=== PATIENT | male | born 1960 | race Caucasian/White ===

== ENCOUNTER → 2016-10-23 | Outpatient (CLI) | payer BC, OTHER ==
[~2016-10-23] MED LIST: ALLO300T2 PO; ASPEC81 PO; CLC6 PO; DICL1.3D21 TD; GLC/500 PO; GLIP-197 PO; LEVO200T6 PO; LPT40 PO; METF-384 PO; METO25TA3 PO; NAPR1TAB9 PO
[2016-10-23 19:34] LABS: AST/SGOT 56 U/L (15-37); BLOOD UREA NITROGEN 17 mg/dl (7-18); BUN/CREATININE RATIO 12.7 (10-20); CALCIUM 9.2 mg/dl (8.5-10.1); CARBON DIOXIDE 23 mmol/L (21-32); CHLORIDE 105 mmol/L (98-107); GLUCOSE 85 mg/dl (70-99); SODIUM 138 mmol/L (136-145)
[2016-10-23 19:45] LABS: ALT/SGPT 75 U/L (12-78); CHOLESTEROL 86 mg/dl (0-200); CHOLESTEROL/HDL RATIO 2.2; HDL CHOLESTEROL 40 mg/dl; LDL CHOLESTEROL CALCULATED 31 mg/dl; TRIGLYCERIDES 77 mg/dl (0-150); URIC ACID 5.7 mg/dl (2.6-7.2); VERY LOW DENSITY LIPOPROT CALC 15 mg/dl
[2016-10-24 06:20] LABS: ESTIMATED AVERAGE GLUCOSE 148 mg/dl; HA1C FLAG Normal (Normal)
== END | disposition home or self-care (01) ==
LOC: C.LAB1850 16:13
PROVIDERS: ATTEND Internal Medicine
DX: E03.9 Hypothyroidism, unspecified (principal); E11.9 Type 2 diabetes mellitus without complications; E78.5 Hyperlipidemia, unspecified; M10.9 Gout, unspecified

== ENCOUNTER → 2016-11-29 | Outpatient (CLI) | payer BC, OTHER ==
--- NOTE | 2016-11-29 10:13 | DIAGNOSTIC IMAGING REPORT ---
LEFT KNEE 2 VIEWS CLINICAL HISTORY: Left knee pain. FINDINGS: AP and lateral views of the left knee are compared to study dated 02/19/2016. The skeletal structures appear osteopenic. No fracture is seen. There is mild to moderate degenerative narrowing at the patellofemoral articulation. The medial and lateral compartments appear maintained. There is mild degenerative beaking of the tibial spine. Tiny patellar enthesophytes are noted. There is no large joint effusion. Prepatellar soft tissue swelling is noted. IMPRESSION: 1. Mild prepatellar soft tissue swelling. No acute bony abnormality is seen in the left knee. 2. Osteopenia and mild arthritic change as above. Electronically signed by: Javad Vega M.D. 11/29/2016 10:11 AM Dictated Date/Time: 11/29/2016 10:10 AM
== END | disposition home or self-care (01) ==
LOC: C.RADBC 09:28
PROVIDERS: ATTEND Internal Medicine
DX: M25.562 Pain in left knee (principal); M85.80 Other specified disorders of bone density and structure, unspecified site

== ENCOUNTER → 2017-04-18 | Outpatient (CLI) | payer BC, OTHER ==
[2017-04-18 18:35] LABS: ALT/SGPT 88 U/L (12-78); AST/SGOT 47 U/L (15-37); BLOOD UREA NITROGEN 21 mg/dl (7-18); BUN/CREATININE RATIO 17.2 (10-20); CALCIUM 9.1 mg/dl (8.5-10.1); CARBON DIOXIDE 26 mmol/L (21-32); CHLORIDE 104 mmol/L (98-107); CHOLESTEROL 151 mg/dl (0-200); GLUCOSE 93 mg/dl (70-99); SODIUM 137 mmol/L (136-145); URIC ACID 6.1 mg/dl (2.6-7.2)
[2017-04-18 18:45] LABS: CHOLESTEROL/HDL RATIO 4.2; HDL CHOLESTEROL 36 mg/dl; LDL CHOLESTEROL CALCULATED 85 mg/dl; PROSTATE SPECIFIC ANTIGEN 0.289 ng/ml (0.000-4.000); TRIGLYCERIDES 149 mg/dl (0-150); VERY LOW DENSITY LIPOPROT CALC 30 mg/dl
[2017-04-19 07:06] LABS: ESTIMATED AVERAGE GLUCOSE 180 mg/dl; HA1C FLAG Normal (Normal)
== END | disposition home or self-care (01) ==
LOC: C.LAB1850 16:17
PROVIDERS: ATTEND Internal Medicine
DX: Z12.5 Encounter for screening for malignant neoplasm of prostate (principal); M10.9 Gout, unspecified; E78.5 Hyperlipidemia, unspecified; E03.9 Hypothyroidism, unspecified; E11.9 Type 2 diabetes mellitus without complications

== ENCOUNTER → 2017-07-30 | Outpatient (CLI) | payer BC, OTHER ==
[2017-07-30 09:44] LABS: ALT/SGPT 64 U/L (12-78); BLOOD UREA NITROGEN 17 mg/dl (7-18); BUN/CREATININE RATIO 14.8 (10-20); CARBON DIOXIDE 23 mmol/L (21-32); CHLORIDE 104 mmol/L (98-107); CREATININE 1.15 mg/dl (0.60-1.40); GLUCOSE 163 mg/dl (70-99); POTASSIUM 4.5 mmol/L (3.5-5.1); SODIUM 135 mmol/L (136-145)
[2017-07-30 09:55] LABS: ALKALINE PHOSPHATASE 82 U/L (45-117); AST/SGOT 53 U/L (15-37); THYROID STIMULATING HORMONE 0.009 uIu/ml (0.300-4.500)
[2017-07-30 09:56] LABS: ESTIMATED AVERAGE GLUCOSE 186 mg/dl; HA1C FLAG Normal (Normal)
== END | disposition home or self-care (01) ==
LOC: C.LAB1850 07:12
PROVIDERS: ATTEND Internal Medicine
DX: K76.0 Fatty (change of) liver, not elsewhere classified (principal); E11.9 Type 2 diabetes mellitus without complications; E03.9 Hypothyroidism, unspecified

== ENCOUNTER → 2017-07-31 | Outpatient (CLI) | payer BC, OTHER ==
--- NOTE | 2017-07-31 15:27 | DIAGNOSTIC IMAGING REPORT ---
CERVICAL SPINE 5 VIEWS CLINICAL HISTORY: Neck numbness. No reported history of trauma. FINDINGS: AP, lateral, bilateral oblique, and odontoid views of the cervical spine are correlated with CT angiogram of the neck dated 08/16/2016. The skeletal structures are well mineralized. There is no radiographic evidence of fracture or subluxation. The odontoid process and lateral masses appear intact on the open-mouth view. Mild productive degenerative change is seen at the atlantodental articulation. Vertebral body height and alignment are preserved throughout the cervical spine. There is straightening of the cervical lordosis. The spinolaminar line is preserved. The spinous processes appear intact. There is only mild bilateral neuroforaminal stenosis seen in the lower cervical region on the oblique views. Mild facet arthropathy is observed. Anterior osteophytes are noted in the lower cervical region. There is mild disc space narrowing seen at C6-C7. The remaining disc spaces appear maintained. The prevertebral soft tissues are within normal limits. The partially imaged apical lung parenchyma appears clear. IMPRESSION: 1. No acute bony abnormality is seen involving the cervical spine. 2. Mild spondylotic change as above. Dictated: 07/31/2017 3:18 PM Transcribed: 07/31/2017 3:26 PM [email or web address] Electronically signed by: Javad Vega M.D. 07/31/2017 3:32 PM Dictated Date/Time: 07/31/2017 3:18 PM
== END | disposition home or self-care (01) ==
LOC: C.RAD1850 14:53
PROVIDERS: ATTEND Psychiatry & Neurology Neurology
DX: R20.0 Anesthesia of skin (principal)

== ENCOUNTER → 2017-10-15 | Outpatient (CLI) | payer BC, OTHER ==
[2017-10-15 16:03] LABS: ALT/SGPT 117 U/L (12-78); AST/SGOT 72 U/L (15-37); BLOOD UREA NITROGEN 12 mg/dl (7-18); CARBON DIOXIDE 26 mmol/L (21-32); CREATININE 1.32 mg/dl (0.60-1.40); GLUCOSE 125 mg/dl (70-99); POTASSIUM 4.2 mmol/L (3.5-5.1); SODIUM 134 mmol/L (136-145)
[2017-10-15 16:12] LABS: CHOLESTEROL 148 mg/dl (0-200); LDL CHOLESTEROL CALCULATED 76 mg/dl
[2017-10-16 06:32] LABS: HEMOGLOBIN A1C 8.5 % (4.5-5.6)
== END | disposition home or self-care (01) ==
LOC: C.LAB1850 14:36
PROVIDERS: ATTEND Internal Medicine
DX: E11.9 Type 2 diabetes mellitus without complications (principal); E03.9 Hypothyroidism, unspecified; E78.5 Hyperlipidemia, unspecified

== ENCOUNTER → 2017-12-03 | Outpatient (CLI) | payer BC, OTHER ==
[~2017-12-03] MED LIST changes: -ASPEC81 PO; +ASPI-320 PO
[2017-12-03 16:49] LABS: ALBUMIN 3.6 gm/dl (3.4-5.0); TOTAL PROTEIN 7.5 gm/dl (6.4-8.2)
== END | disposition home or self-care (01) ==
LOC: C.LAB1850 14:32
PROVIDERS: ATTEND Internal Medicine
DX: E03.9 Hypothyroidism, unspecified (principal); R74.8 Abnormal levels of other serum enzymes

== ENCOUNTER → 2017-12-11 | Outpatient (CLI) | payer BC, OTHER ==
--- NOTE | 2017-12-11 17:12 | DIAGNOSTIC IMAGING REPORT ---
LEFT KNEE 3 VIEWS HISTORY: Left knee pain. COMPARISON: Left knee 11/29/2016. FINDINGS: There is no fracture or dislocation. Small knee effusion. Tiny marginal osteophytes at the patella unchanged. Otherwise, the cartilage spaces are maintained. No radiopaque foreign bodies. IMPRESSION: Small knee effusion. No fractures. Electronically signed by: Ervin Mora M.D. 12/11/2017 5:11 PM Dictated Date/Time: 12/11/2017 5:09 PM
== END | disposition home or self-care (01) ==
LOC: C.RAD1850 15:59
PROVIDERS: ATTEND Physician Assistant
DX: M25.562 Pain in left knee (principal)

== ENCOUNTER 2025-07-15 06:44 | Inpatient (IN) ==
--- NOTE | 2025-07-15 06:50 | Emergency Department Note ---
History of Present Illness General Chief complaint: GI Assessment Stated complaint: Abdominal Pain, Coffee Ground Emesis, Diarrhea Time Seen by Provider: 07/15/25 06:46 History of Present Illness This is a 64-year-old male with a history of type 2 diabetes, hypertension, hypertrophic cardiomyopathy that presents to the emergency department via EMS with complaints of "abdominal pain, coffee-ground emesis, diarrhea". The patient states that for the past 2 days he has had epigastric abdominal discomfort that does not radiate. There is no back pain. No tearing sensation. No chest pain or shortness of breath. No fevers or chills. Patient has had dry heaving for the past 2 days. This morning upon dry heaving there was productive emesis that he notes was coffee-ground in appearance. He has a picture that does depict coffee-ground emesis within the toilet basin surrounded by a pink hue to the water. The patient denies any history of anticoagulant use. He does take aspirin daily but did not have it this morning. Report from medic notes that the patient received 4 mg IV Zofran and 550 mL of NSS in route. Home Medications Medication Instructions Recorded Confirmed Type aspirin 81 mg tablet,delayed 81 mg PO QAM 05/31/19 07/15/25 History release blood-glucose sensor (Dexcom G7 #1 ea 11/06/23 06/06/25 Rx Sensor device) blood-glucose,filenet p8 developer,cont #1 ea 11/06/23 06/06/25 Rx (Dexcom G7 Appraisal Technician) pantoprazole 40 mg tablet,delayed 40 mg PO DAILY #30 tabs 11/28/23 07/15/25 Rx release glipizide 5 mg tablet 5 mg PO DAILY #90 tabs 09/29/24 07/15/25 Rx metoprolol succinate 25 mg 25 mg PO QAM #90 tabs 09/29/24 07/15/25 Rx tablet,extended release 24 hr levothyroxine 150 mcg tablet 150 mcg PO UD #90 tabs 03/02/25 07/15/25 Rx flash glucose sensor (FreeStyle #2 ea 03/07/25 06/06/25 Rx Russell 2 Sensor kit) blood-glucose sensor (FreeStyle #1 ea 03/23/25 06/06/25 Rx Russell 3 Plus Sensor device) atorvastatin 80 mg tablet 80 mg PO HS #90 tabs 04/22/25 07/15/25 Rx metformin 1,000 mg tablet 1,000 mg PO BID #180 tabs 06/09/25 07/15/25 Rx tirzepatide 12.5 mg/0.5 mL 12.5 mg (0.5 mL) subcut Q7D #6 mL 06/09/25 07/15/25 Rx subcutaneous pen injector allopurinol 300 mg tablet 300 mg PO QAM #90 tabs 07/11/25 07/15/25 Rx meloxicam 7.5 mg tablet 7.5 mg PO DAILY PRN PAIN 07/15/25 07/15/25 History Allergies Allergy/AdvReac Type Severity Reaction Status Date / Time No Known Allergies Allergy Verified 06/06/25 14:53 Past Med/Surg History Problem List (Updated 07/15/25 @ 13:52 by Renato Cortes MD) Portal hypertensive gastropathy Esophageal varices UGI bleed Hyperkalemia (Acute) Liver cirrhosis (Acute) Lactic acidosis (Acute) Metabolic acidosis with normal anion gap and bicarbonate losses Coffee ground emesis (Acute) Type 2 diabetes mellitus with obesity Degenerative tear of left medial meniscus Pancytopenia Current use of proton pump inhibitor Encounter for pre-operative examination Epigastric pain (Acute) Diarrhea Anemia, mild Rupture of right proximal biceps tendon Gout (Chronic) Hypertension (Chronic) Left ventricular hypertrophy (Chronic) Obstructive hypertrophic cardiomyopathy (Chronic) f/u mn cardio Obstructive sleep apnea (Chronic) hx-had sx to repair Type 2 diabetes mellitus (Chronic) Hypothyroidism (Chronic) Medical History Hyperlipidemia CVA (cerebrovascular accident) 06/2015 and 08/2015>both "mild">no residual effects from either time, currently on aspirin Surgical History Hx of colonoscopy H/O uvulectomy S/P tonsillectomy and adenoidectomy Family History Uncle Coronary heart disease Grandfather (Maternal) Coronary heart disease Mother Diabetes Stroke Uncle Diabetes Grandmother (Maternal) Congestive heart failure Other Myocardial infarction Denies family history of Prostate cancer Breast cancer Colorectal cancer Social History Smoking Status: Never smoker Second Hand Exposure: Yes (hx growing up); Do You Dip or Chew Tobacco: No; Hx Alcohol Use: Yes Alcohol Intake Frequency: Monthly or Less Hx Substance Use: Yes Last Used Substance Other:: remote hx-occasional Preferred Language: Welsh Communication Ability: Effective Visual Impairment: No Limitations Hearing Ability: Normal Baler Operator Required: No Beliefs That Will Affect Care: None marital status: Current Living Situation: Spouse current occupational status: 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 [employer] 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+ years in the [employer] Feels Safe at Home: Yes Childhood Exposure to Second-Hand Smoke: Yes Dental Care, Regularly: Yes Physical Activity Frequency: 1-2 Times per Week Seatbelt Use: always Sunscreen Use: Yes Assistive Devices: Glasses Review of Systems A total of 10 systems reviewed and were otherwise negative Physical Exam Vital Signs Vital Signs - 24 hr 07/15/25 06:52 07/15/25 06:58 07/15/25 08:36 Temperature 36.6 C Temperature Source Oral Pulse Rate 108 H 108 H 103 H Pulse Rhythm Regular Respiratory Rate 17 17 Respiratory Effort / Characteristics Non-Labored Spontaneous Respiratory Depth Normal Respiratory Pattern Regular Blood Pressure 114/59 L Blood Pressure Mean 77 Pulse Oximetry 99 99 Oxygen Delivery Method Room Air Room Air Sepsis Recent Fever Within 48 Hours No Sepsis New/Unexplained Change in Mental Status No Sepsis Action Taken by Nursing No Action Required 07/15/25 09:24 07/15/25 09:31 07/15/25 09:31 Temperature 36.9 C Temperature Source Oral Pulse Rate 102 H Pulse Rhythm Respiratory Rate 30 H Respiratory Effort / Characteristics Respiratory Depth Respiratory Pattern Blood Pressure 113/72 120/65 120/65 Blood Pressure Mean 85 95 95 Pulse Oximetry 96 Oxygen Delivery Method Sepsis Recent Fever Within 48 Hours Sepsis New/Unexplained Change in Mental Status Sepsis Action Taken by Nursing 07/15/25 09:31 07/15/25 09:36 07/15/25 09:37 Temperature Temperature Source Pulse Rate 103 H Pulse Rhythm Respiratory Rate 24 Respiratory Effort / Characteristics Respiratory Depth Respiratory Pattern Blood Pressure 120/65 87/64 L Blood Pressure Mean 95 66 Pulse Oximetry Oxygen Delivery Method Sepsis Recent Fever Within 48 Hours Sepsis New/Unexplained Change in Mental Status Sepsis Action Taken by Nursing 07/15/25 09:39 07/15/25 09:39 07/15/25 09:39 Temperature 37.1 C Temperature Source Oral Pulse Rate 102 H 101 H Pulse Rhythm Respiratory Rate 20 26 H Respiratory Effort / Characteristics Respiratory Depth Respiratory Pattern Blood Pressure 114/66 114/70 Blood Pressure Mean 82 80 Pulse Oximetry Oxygen Delivery Method Sepsis Recent Fever Within 48 Hours Sepsis New/Unexplained Change in Mental Status Sepsis Action Taken by Nursing 07/15/25 09:40 07/15/25 09:40 07/15/25 09:40 Temperature Temperature Source Pulse Rate Pulse Rhythm Respiratory Rate Respiratory Effort / Characteristics Respiratory Depth Respiratory Pattern Blood Pressure 114/66 114/66 114/66 Blood Pressure Mean 90 90 90 Pulse Oximetry Oxygen Delivery Method Sepsis Recent Fever Within 48 Hours Sepsis New/Unexplained Change in Mental Status Sepsis Action Taken by Nursing 07/15/25 09:40 07/15/25 09:40 Temperature Temperature Source Pulse Rate Pulse Rhythm Respiratory Rate Respiratory Effort / Characteristics Respiratory Depth Respiratory Pattern Blood Pressure 114/66 114/66 Blood Pressure Mean 90 90 Pulse Oximetry Oxygen Delivery Method Sepsis Recent Fever Within 48 Hours Sepsis New/Unexplained Change in Mental Status Sepsis Action Taken by Nursing VITAL SIGNS - Vital signs and nursing notes were reviewed. Stable and afebrile. GENERAL - 64-year-old male appearing his stated age who is in no acute distress. Communicates well with provider and answers questions appropriately. SKIN - Without rashes. HEAD - NC/AT. EYES - PERRL with EOMI bilaterally. Sclera anicteric. EARS - No deformities of external structures noted on gross examination bilaterally. NOSE - Midline and without cyanosis. No epistaxis or purulent drainage noted. MOUTH/OROPHARYNX - Without perioral cyanosis. NECK - Neck with FROM. No nuchal rigidity. LUNGS - CTA CARDIAC - RRR ABDOMEN - Abdominal contour normal without pulsations or visible masses. BS normoactive all four quadrants. Epigastric abdominal tenderness to palpation. No palpable masses, hepatosplenomegaly, or ascites noted. EXTREMITIES - No clubbing or peripheral cyanosis. +5/5 strength noted in UE/LE bilaterally. NEUROLOGIC - Cranial nerves II through XII grossly intact. PSYCH -alert, oriented and pleasant on exam Course Administered Medications Octreotide Acetate 500 mcg/ (Sodium Chloride) 100.5 mls @ 10.05 mls/hr IV .Q10H PRETTY Stop: 08/14/25 09:14 Last Admin: 07/15/25 17:32 Dose: 50 mcg/hr, 10.1 mls/hr Documented By: marley Infusion: 07/15/25 17:32 Dose: Infused Documented By: marley Admin: 07/15/25 10:00 Dose: 50 mcg/hr, 10.1 mls/hr Documented By: EFRAIN Pantoprazole Sodium (Protonix) 40 mg in 10 mls @ 5 mls/min IV BID PRETTY Stop: 08/14/25 20:59 Last Admin: 07/15/25 21:05 Dose: 5 mls/min Documented By: [id number] Insulin Aspart (Insulin Aspart Per Unit Charge) 0 units SC ACHS PRETTY Stop: 08/14/25 20:59 Last Admin: 07/15/25 21:10 Dose: Not Given Documented By: [id number] Co-signed By: PATRICIO Insulin Glargine (Lantus Per Unit Charge) 10 units SQ HS PRETTY Stop: 08/14/25 20:59 Last Admin: 07/15/25 21:25 Dose: 10 units Documented By: [id number] Co-signed By: PATRICIO Discontinued Medications Dextrose (Dextrose 50% 50 Ml Syringe) 50 ml IV NOW STA Stop: 07/15/25 09:23 Last Admin: 07/15/25 09:53 Dose: 50 ml Documented By: REAL Dextrose (Dextrose 50% 50 Ml Syringe) 50 ml IV NOW STA Stop: 07/15/25 11:36 Last Admin: 07/15/25 12:10 Dose: 50 ml Documented By: marley Pantoprazole Sodium 40 mg/ (Dextrose) 100 mls @ 20 mls/hr IV Q5H PRETTY Stop: 08/14/25 07:14 Last Infusion: 07/15/25 19:35 Dose: Infused Documented By: [id number] Admin: 07/15/25 17:32 Dose: 8 mg/hr, 20 mls/hr Documented By: marley Infusion: 07/15/25 17:32 Dose: Infused Documented By: marley Admin: 07/15/25 13:08 Dose: 8 mg/hr, 20 mls/hr Documented By: Infusion: 07/15/25 13:08 Dose: Infused Documented By: Admin: 07/15/25 08:28 Dose: 8 mg/hr, 20 mls/hr Documented By: REAL Pantoprazole Sodium 80 mg/ (Dextrose) 120 mls @ 480 mls/hr IV NOW ONE Stop: 07/15/25 07:11 Last Infusion: 07/15/25 08:32 Dose: Infused Documented By: Admin: 07/15/25 07:20 Dose: 480 mls/hr Documented By: KARY Sodium Chloride (Nss) 1,000 mls @ 999 mls/hr IV .Q1H1M ONE Stop: 07/15/25 08:53 Last Infusion: 07/15/25 09:38 Dose: Infused Documented By: Admin: 07/15/25 08:32 Dose: 999 mls/hr Documented By: REAL Ceftriaxone Sodium (Rocephin) 2,000 mg in 50 mls @ 100 mls/hr IV NOW STA Stop: 07/15/25 09:22 Last Infusion: 07/15/25 12:35 Dose: Infused Documented By: dst Admin: 07/15/25 10:42 Dose: 100 mls/hr Documented By: marley Sodium Bicarbonate 150 meq/ (Dextrose) 1,150 mls @ 290 mls/hr IV .Q3H58M STA Stop: 07/15/25 13:19 Last Infusion: 07/15/25 15:30 Dose: Infused Documented By: dst Admin: 07/15/25 11:31 Dose: 290 mls/hr Documented By: marley Insulin Human Regular 10 units (/ Syringe) 9.9 mls @ 3 mls/sec IV ONE STA Stop: 07/15/25 09:23 Last Admin: 07/15/25 09:52 Dose: 3 mls/sec Documented By: REAL Co-signed By: KARY Insulin Human Regular 10 units (/ Syringe) 9.9 mls @ 3 mls/sec IV ONE STA Stop: 07/15/25 11:36 Last Admin: 07/15/25 12:10 Dose: 3 mls/sec Documented By: dst Co-signed By: EFRAIN Insulin Aspart (Insulin Aspart Per Unit Charge) 0 units SC ACHS PRETTY Stop: 08/14/25 11:29 Last Admin: 07/15/25 16:13 Dose: 3 units Documented By: dst Co-signed By: EFRAIN Admin: 07/15/25 12:39 Dose: Not Given Documented By: EFRAIN Ioversol (Optiray 320 100ml) 94 ml IV ONCE ONE Stop: 07/15/25 08:12 Last Admin: 07/15/25 08:14 Dose: 94 ml Documented By: NICK Metoclopramide HCl (Metoclopramide Hcl Inj 5 Mg/Ml 2 Ml Vial) 10 mg IV NOW STA Stop: 07/15/25 09:32 Last Admin: 07/15/25 09:45 Dose: 10 mg Documented By: REAL Gates (Stat Iv/Im) 1 each N/A NOW STA Stop: 07/15/25 09:15 Last Admin: 07/15/25 09:38 Dose: 1 each Documented By: REAL Gates (Icu Protocol For Hyperglycemia) 1 each N/A ACHS PRETTY Stop: 07/17/25 11:29 Last Admin: 07/15/25 12:39 Dose: Not Given Documented By: EFRAIN Octreotide Acetate (Octreotide Bolus From Bag) 50 mcg IV ONE ONE Stop: 07/15/25 09:15 Last Admin: 07/15/25 12:38 Dose: Not Given Documented By: EFRAIN Pantoprazole Sodium (Pantoprazole Bolus/Drip) 1 each IV NOW STA Stop: 07/15/25 06:58 Last Admin: 07/15/25 08:32 Dose: 1 each Documented By: REAL Critical Care Time I have personally spent about 70 minutes of critical care time in the direct management of this patient. This includes bedside care, interpretation of diagnostic studies, and testing, discussion with consultants, patient, and family members, and other required patient management activities. This 70 minutes is in excess of all separately billable procedures. Medical Decision Making Laboratory Data 07/15/25 21:09 07/15/25 21:09 Lab Results 07/15/25 07/15/25 07/15/25 Range/Units 06:30 07:01 07:36 WBC 8.68 (4.8-10.8) K/ul RBC 3.37 L (4.70-6.10) M/uL Hgb 11.1 L (14.0-18.0) g/dL POC Hgb 10.5 L (14.0-18.0) g/dl Hct 32.3 L (42.0-52.0) % POC Hct 31 L (42-52) % MCV 95.8 (80.0-100.0) fL MCH 32.9 (25.0-34.0) pg MCHC 34.4 (32.0-36.0) g/dL RDW Std Deviation 51.4 H (36.4-46.3) fL RDW Coeff of Court 14.7 H (11.5-14.5) % Plt Count 138 (130-400) K/uL MPV 10.6 (9.4-12.4) fL Immature Gran % (Auto) 0.5 % Neut % (Auto) 76.8 % Lymph % (Auto) 16.2 % Norman % (Auto) 5.3 % Eos % (Auto) 0.7 % Baso % (Auto) 0.5 % Neut # (Auto) 6.67 H (1.40-6.50) K/uL Lymph # (Auto) 1.41 (1.20-3.40) K/uL Norman # (Auto) 0.46 (0.11-0.59) K/uL Eos # (Auto) 0.06 (0.00-0.50) K/uL Baso # (Auto) 0.04 (0.00-0.20) K/uL Immature Gran # (Auto) 0.04 (0.01-0.20) K/uL PT 13.0 H (9.0-12.0) Seconds INR 1.2 H (0.9-1.1) APTT 23 (21-31) Seconds PTT Ratio 0.8 POC Sodium 137 (135-144) mmol/L Sodium 137 (136-145) mmol/L POC Potassium 5.8 H (3.3-5.0) mmol/L Potassium 5.9 H (3.5-5.1) mmol/L POC Chloride 109 (101-112) mmol/L Chloride 106 (98-107) mmol/L Carbon Dioxide 17 L (21-32) mmol/L POC Total CO2 17 L (24-31) mmol/L Anion Gap 14 H (3-11) POC Anion Gap 18.0 (16-25) mmol/L POC BUN 33 H (7-18) mg/dl BUN 34 H (6-23) mg/dl Creatinine 1.23 (0.6-1.4) mg/dl POC Creatinine 1.3 (0.6-1.3) mg/dl Est Cr Clr Drug Dosing 69.1 ml/min eGFR 65.56 BUN/Creatinine Ratio 27.6 H (10-20) Glucose 183 H (70-99(Fasting)) mg/dl POC Glucose (other) 175 H (70-99) mg/dl Lactate (0.4-2.0) mmol/L Calcium 10.6 H (8.6-10.3) mg/dl POC Ioniz Calcium Choco 1.30 (1.12-1.32) mmol/l Magnesium 1.8 (1.7-2.4) mg/dl Total Bilirubin 1.7 H (0.2-1.0) mg/dl AST 50 H (13-39) U/L ALT 55 H (7-52) U/L Alkaline Phosphatase 97 (34-104) U/L Troponin I High Sens 30.9 H (0-20) pg/ml Total Protein 6.9 (6.0-8.3) gm/dl Albumin 4.0 (3.4-5.0) gm/dl Globulin 2.9 (2.5-4.0) gm/dl Albumin/Globulin Ratio 1.4 (0.9-2) Lipase 18 (11-82) U/L Procalcitonin (0-0.5) ng/ml Blood Type O Positive Blood Type Recheck Antibody Screen NEGATIVE Crossmatch See Detail 07/15/25 07/15/25 07/15/25 Range/Units 07:38 08:31 09:28 WBC (4.8-10.8) K/ul RBC (4.70-6.10) M/uL Hgb 9.8 L (14.0-18.0) g/dL POC Hgb (14.0-18.0) g/dl Hct 28.0 L (42.0-52.0) % POC Hct (42-52) % MCV (80.0-100.0) fL MCH (25.0-34.0) pg MCHC (32.0-36.0) g/dL RDW Std Deviation (36.4-46.3) fL RDW Coeff of Court (11.5-14.5) % Plt Count (130-400) K/uL MPV (9.4-12.4) fL Immature Gran % (Auto) % Neut % (Auto) % Lymph % (Auto) % Norman % (Auto) % Eos % (Auto) % Baso % (Auto) % Neut # (Auto) (1.40-6.50) K/uL Lymph # (Auto) (1.20-3.40) K/uL Norman # (Auto) (0.11-0.59) K/uL Eos # (Auto) (0.00-0.50) K/uL Baso # (Auto) (0.00-0.20) K/uL Immature Gran # (Auto) (0.01-0.20) K/uL PT (9.0-12.0) Seconds INR (0.9-1.1) APTT (21-31) Seconds PTT Ratio POC Sodium (135-144) mmol/L Sodium 134 L (136-145) mmol/L POC Potassium (3.3-5.0) mmol/L Potassium 6.4 H* (3.5-5.1) mmol/L POC Chloride (101-112) mmol/L Chloride 107 (98-107) mmol/L Carbon Dioxide 17 L (21-32) mmol/L POC Total CO2 (24-31) mmol/L Anion Gap 10 (3-11) POC Anion Gap (16-25) mmol/L POC BUN (7-18) mg/dl BUN 35 H (6-23) mg/dl Creatinine 1.15 (0.6-1.4) mg/dl POC Creatinine (0.6-1.3) mg/dl Est Cr Clr Drug Dosing 73.9 ml/min eGFR 71.07 BUN/Creatinine Ratio 30.4 H (10-20) Glucose 174 H (70-99(Fasting)) mg/dl POC Glucose (other) (70-99) mg/dl Lactate 7.1 H* 6.7 H* 6.8 H* (0.4-2.0) mmol/L Calcium 9.4 (8.6-10.3) mg/dl POC Ioniz Calcium Choco (1.12-1.32) mmol/l Magnesium (1.7-2.4) mg/dl Total Bilirubin (0.2-1.0) mg/dl AST (13-39) U/L ALT (7-52) U/L Alkaline Phosphatase (34-104) U/L Troponin I High Sens (0-20) pg/ml Total Protein (6.0-8.3) gm/dl Albumin (3.4-5.0) gm/dl Globulin (2.5-4.0) gm/dl Albumin/Globulin Ratio (0.9-2) Lipase (11-82) U/L Procalcitonin 0.09 (0-0.5) ng/ml Blood Type Blood Type Recheck Antibody Screen Crossmatch 07/15/25 Range/Units 09:35 WBC (4.8-10.8) K/ul RBC (4.70-6.10) M/uL Hgb (14.0-18.0) g/dL POC Hgb (14.0-18.0) g/dl Hct (42.0-52.0) % POC Hct (42-52) % MCV (80.0-100.0) fL MCH (25.0-34.0) pg MCHC (32.0-36.0) g/dL RDW Std Deviation (36.4-46.3) fL RDW Coeff of Court (11.5-14.5) % Plt Count (130-400) K/uL MPV (9.4-12.4) fL Immature Gran % (Auto) % Neut % (Auto) % Lymph % (Auto) % Norman % (Auto) % Eos % (Auto) % Baso % (Auto) % Neut # (Auto) (1.40-6.50) K/uL Lymph # (Auto) (1.20-3.40) K/uL Norman # (Auto) (0.11-0.59) K/uL Eos # (Auto) (0.00-0.50) K/uL Baso # (Auto) (0.00-0.20) K/uL Immature Gran # (Auto) (0.01-0.20) K/uL PT (9.0-12.0) Seconds INR (0.9-1.1) APTT (21-31) Seconds PTT Ratio POC Sodium (135-144) mmol/L Sodium (136-145) mmol/L POC Potassium (3.3-5.0) mmol/L Potassium (3.5-5.1) mmol/L POC Chloride (101-112) mmol/L Chloride (98-107) mmol/L Carbon Dioxide (21-32) mmol/L POC Total CO2 (24-31) mmol/L Anion Gap (3-11) POC Anion Gap (16-25) mmol/L POC BUN (7-18) mg/dl BUN (6-23) mg/dl Creatinine (0.6-1.4) mg/dl POC Creatinine (0.6-1.3) mg/dl Est Cr Clr Drug Dosing ml/min eGFR BUN/Creatinine Ratio (10-20) Glucose (70-99(Fasting)) mg/dl POC Glucose (other) (70-99) mg/dl Lactate (0.4-2.0) mmol/L Calcium (8.6-10.3) mg/dl POC Ioniz Calcium Choco (1.12-1.32) mmol/l Magnesium (1.7-2.4) mg/dl Total Bilirubin (0.2-1.0) mg/dl AST (13-39) U/L ALT (7-52) U/L Alkaline Phosphatase (34-104) U/L Troponin I High Sens (0-20) pg/ml Total Protein (6.0-8.3) gm/dl Albumin (3.4-5.0) gm/dl Globulin (2.5-4.0) gm/dl Albumin/Globulin Ratio (0.9-2) Lipase (11-82) U/L Procalcitonin (0-0.5) ng/ml Blood Type Blood Type Recheck O Positive Antibody Screen Crossmatch Imaging Data Radiologist's Impression: Abdomen/Pelvis CT 07/15/25 06:58 CT SCAN OF THE ABDOMEN AND PELVIS WITH IV CONTRAST CLINICAL HISTORY: Epigastric pain. Coffee-ground emesis. COMPARISON STUDY: Abdominal ultrasound November 05, 2023. TECHNIQUE: Following the IV administration of 94 cc of Optiray 320, CT scan of the abdomen and pelvis is performed from the lung bases to the proximal femora. Images are reviewed in the axial, sagittal, and coronal planes. IV contrast was administered without complication. A dose lowering technique was utilized adhering to the principles of ALARA. FINDINGS: Please note that the chest CT will be reported separately. There is moderate elevation of the right hemidiaphragm. No pneumatosis, free air or portal venous gas is present. There is probable hepatic steatosis. In addition, there is mild lobular contour of the liver surface with enlargement of the caudate lobe and lateral segment consistent with cirrhosis. No hepatic lesions are identified on the venous phase exam. Spleen is mildly enlarged. There are multiple small abdominal and pelvic varices, including paraesophageal varices. Recanalized periumbilical vein is noted. There is no ascites. Gallbladder wall thickening is a nonspecific finding in the setting of cirrhosis. The gallbladder is not distended. The findings do not suggest acute cholecystitis. Adrenal glands, kidneys and pancreas are unremarkable. There is no biliary or pancreatic ductal dilatation. No hydronephrosis. Prominent mesenteric lymph nodes are likely benign. There is mild circumferential wall thickening of the ascending colon. No evidence for a bowel obstruction. Normal appendix. Apparent jejunal wall thickening is probably related to underdistention. The main, left and right portal veins are patent. IMPRESSION: 1. Cirrhotic liver with probable hepatic steatosis. Mild splenomegaly and varices formation indicative of portal hypertension. No ascites. 2. Wall thickening of the ascending colon. This is likely related to portal hypertension although a nonspecific colitis could appear similar. 3. No bowel obstruction. Normal appendix. ACT 112: Negative or not required by law. Electronically signed by: Jose Dominique M.D. 07/15/2025 8:[address] 07/15/25 06:[address] WITH CONTRAST CT DOSE: 2510.54 mGy.cm HISTORY: epigastric abd pain, coffee ground emesis TECHNIQUE: Multiaxial CT images of the chest were performed following the IV administration of 90 cc of Optiray. A dose lowering technique was utilized adhering to the principles of ALARA. COMPARISON STUDY: 02/28/2020 chest x-ray FINDINGS: There is mildly progressive mild elevation of the right hemidiaphragm. There is mild atelectasis at the right lung base. No other pulmonary consolidation or pleural effusion seen. No significant pulmonary nodule. No enlarged adenopathy. No pericardial effusion. There are diffuse coronary artery calcifications. No acute osseous finding seen. IMPRESSION: No acute findings seen. ACT 112: Negative or not required by law. Electronically signed by: Domo Rowland M.D. 07/15/2025 8:30 AM [facility] Narrative Patient was seen and evaluated as above in room B09. Review was performed of nursing notes and vital signs. I did review pertinent previous visits and patient history. After obtaining a thorough history and physical examination the above work up was performed. Patient presents to us today via EMS for evaluation of epigastric abdominal pain, coffee-ground emesis, black tarry stools. He takes aspirin, no other antiplatelet or anticoagulation. He did not take aspirin today. On assessment he is tender in the abdomen. He is mildly tachycardic, otherwise yields stable vital signs. Options of care were discussed with the patient. IV access was established. Labs were drawn. EKG per my interpretation reveals normal sinus rhythm at a rate of 100 bpm. QTc 459. QRS 102. No ST elevation on this rhythm tracing. Labs show hemoglobin 11.1, downtrending from 13 as of 06/06/2025. There is elevation of INR at 1.2. There is hyponatremia 134. There is hyperkalemia potassium 5.9. There is creatinine within normal limits, elevated BUN. There is mild elevation of troponin at 30.9, likely demand related. There is no chest pain. There is no dyspnea. There is transaminitis noted with T. bili 1.7, all of which are similar to previous. Lactate elevated at 7.1. Patient with history of obstructive hypertrophic cardiomyopathy. Did receive 550 mL of NSS in route. Patient was volume depleted. Lactate returned elevated. At this time we will proceed with an additional 1 L NSS, but frequently reassess in this patient with unique cardiac anatomy. Chest CT and abdomen/pelvis were obtained and are as above. These did reveal no acute findings within the chest, abdomen/pelvis did reveal cirrhotic liver with probable hepatic steatosis. Mild splenomegaly and variceal formation indicative of portal hypertension. There was comment of wall thickening of the ascending colon. At this time with the patient having abdominal pain as well as hematemesis and black tarry stools in the setting of epigastric abdominal pain and finding of varices on CT, we will continue for treatment of the suspected upper GI bleed. Patient while here was medicated with IV fluids, IV ceftriaxone, IV octreotide, IV sodium bicarb + IV insulin/dextrose for the hyperkalemia. Lactate was repeated and was found to be increasing. Hemoglobin rechecked and was downtrending at 9.8, this may be dilutional secondary to IV fluids but could also be setting to acute GI hemorrhage. IV blood ordered. Patient consented and appropriate paperwork was completed and signed by ED attending regarding blood consent. It was felt that the benefit outweighed risk. 2 units ordered now to be transfused. I did speak with Whitney GRAHAM at 9:16 AM, ICU attending Dr. Cortes at 9:20 AM, and Dr. Reese with hospitalist medicine at 9:37 AM. Plan at this time will be ICU and emergent endoscopy. Please refer to further documentation regarding his stay. I will note the patient developed a softer blood pressure but this did respond well to the IV fluids and remained hemodynamically stable here in the ED. GCS: 15 In the evaluation and treatment of this patient the following differential diagnoses were entertained: Upper GI bleed, mediastinitis, pneumomediastinum, intestinal perforation, ascending cholangitis, pancreatitis, among others Impression & Plan Epigastric pain, Coffee ground emesis, Hyperkalemia, Liver cirrhosis, Lactic acidosis Discharge Plan Visit Data Chief Complaint: GI Assessment Stated Complaint: Abdominal Pain, Coffee Ground Emesis, Diarrhea ED Provider: Jacob Colbert ED Midlevel Provider: Brett Smith Discharge Problem: Epigastric pain, Coffee ground emesis, Hyperkalemia, Liver cirrhosis, Lactic acidosis Patient Disposition: Admitted As Inpatient Condition: Serious Discharge Instructions Interventions: ED Discharge Assessment Last Done: 07/15/25 10:57
[2025-07-15 07:16] LABS: Hematocrit (blood only) 32.3 % (42.0-52.0); Hemoglobin 11.1 g/dL (14.0-18.0); Immature Granulocytes # (auto) 0.04 K/uL (0.01-0.20); Immature Granulocytes % (auto) 0.5 %; Mean Corpuscular Hemoglobin 32.9 pg (25.0-34.0); Mean Corpuscular Volume 95.8 fL (80.0-100.0); Platelet Count 138 K/uL (130-400); RDW Standard Deviation 51.4 fL (36.4-46.3); Red Blood Count 3.37 M/uL (4.70-6.10); White Blood Count 8.68 K/ul (4.8-10.8)
[2025-07-15 07:36] LABS: Alanine Aminotransferase 55.0 U/L (7-52); Albumin Globulin Ratio 1.4 (0.9-2); Albumin Level 4.0 gm/dl (3.4-5.0); Alkaline Phosphatase 97.0 U/L (34-104); Anion Gap 14.0 (3-11); Bilirubin,Total 1.7 mg/dl (0.2-1.0); Blood Urea Nitrogen 34.0 mg/dl (6-23); Calcium 10.6 mg/dl (8.6-10.3); Carbon Dioxide 17.0 mmol/L (21-32); Chloride 106.0 mmol/L (98-107); Creatinine Clr Calc Pharmacy 69.1 ml/min; Globulin 2.9 gm/dl (2.5-4.0); Glucose 183.0 mg/dl (70-99(Fasting)); Lipase 18.0 U/L (11-82); Magnesium 1.8 mg/dl (1.7-2.4); Potassium 5.9 mmol/L (3.5-5.1); Sodium 137.0 mmol/L (136-145); Total Protein 6.9 gm/dl (6.0-8.3)
[2025-07-15 07:46] LABS: INR 1.2 (0.9-1.1); Partial Thromboplastin Time 23 Seconds (21-31); Prothrombin Time 13.0 Seconds (9.0-12.0)
[2025-07-15] MEDS: OPTIRAY 320 100ml IV ONE (08:14)
[2025-07-15] MEDS: PANTOprazole 40 MG in DEXTROSE 5% MINI-B 100 ML IV SCH (08:28)
[2025-07-15] MEDS: PANTOPRAZOLE BOLUS/DRIP IV STA (08:32)
[2025-07-15] MEDS: SODIUM CHLORIDE 0.9% 1,000 ML IV ONE (08:32)
--- NOTE | 2025-07-15 08:32 | CT Scan Report ---
CHEST CT WITH CONTRAST CT DOSE: 2510.54 mGy.cm HISTORY: epigastric abd pain, coffee ground emesis TECHNIQUE: Multiaxial CT images of the chest were performed following the IV administration of 90 cc of Optiray. A dose lowering technique was utilized adhering to the principles of ALARA. COMPARISON STUDY: 02/28/2020 chest x-ray FINDINGS: There is mildly progressive mild elevation of the right hemidiaphragm. There is mild atelec tasis at the right lung base. No other pulmonary consolidation or pleural effusion seen. No significa nt pulmonary nodule. No enlarged adenopathy. No pericardial effusion. There are diffuse coronary amanda ry calcifications. No acute osseous finding seen. IMPRESSION: No acute findings seen. ACT 112: Negative or not required by law. Electronically signed by: Domo Rowland M.D. 07/15/2025 8:30 AM
--- NOTE | 2025-07-15 08:41 | CT Scan Report ---
CT SCAN OF THE ABDOMEN AND PELVIS WITH IV CONTRAST CLINICAL HISTORY: Epigastric pain. Coffee-ground emesis. COMPARISON STUDY: Abdominal ultrasound November 05, 2023. TECHNIQUE: Following the IV administration of 94 cc of Optiray 320, CT scan of the abdomen and pelvi s is performed from the lung bases to the proximal femora. Images are reviewed in the axial, sagittal , and coronal planes. IV contrast was administered without complication. A dose lowering technique wa s utilized adhering to the principles of ALARA. FINDINGS: Please note that the chest CT will be reported separately. There is moderate elevation of t he right hemidiaphragm. No pneumatosis, free air or portal venous gas is present. There is probable h epatic steatosis. In addition, there is mild lobular contour of the liver surface with enlargement of the caudate lobe and lateral segment consistent with cirrhosis. No hepatic lesions are identified on the venous phase exam. Spleen is mildly enlarged. There are multiple small abdominal and pelvic vari christiane, including paraesophageal varices. Recanalized periumbilical vein is noted. There is no ascites. Gallbladder wall thickening is a nonspecific finding in the setting of cirrhosis. The gallbladder is not distended. The findings do not suggest acute cholecystitis. Adrenal glands, kidneys and pancreas are unremarkable. There is no biliary or pancreatic ductal dilatation. No hydronephrosis. Prominent m esenteric lymph nodes are likely benign. There is mild circumferential wall thickening of the ascendi ng colon. No evidence for a bowel obstruction. Normal appendix. Apparent jejunal wall thickening is p robably related to underdistention. The main, left and right portal veins are patent. IMPRESSION: 1. Cirrhotic liver with probable hepatic steatosis. Mild splenomegaly and varices formation indicativ e of portal hypertension. No ascites. 2. Wall thickening of the ascending colon. This is likely related to portal hypertension although a n onspecific colitis could appear similar. 3. No bowel obstruction. Normal appendix. ACT 112: Negative or not required by law. Electronically signed by: Jose Dominique M.D. 07/15/2025 8:40 AM
[2025-07-15 08:44] LABS: Hematocrit (blood only) 28.0 % (42.0-52.0); Hemoglobin 9.8 g/dL (14.0-18.0)
[2025-07-15] MEDS ORDERED: SODIUM CHLORIDE 0.9% 100 ML IV PRN (08:53)
[2025-07-15 09:07] LABS: Anion Gap 10.0 (3-11); Blood Urea Nitrogen 35.0 mg/dl (6-23); Calcium 9.4 mg/dl (8.6-10.3); Carbon Dioxide 17.0 mmol/L (21-32); Chloride 107.0 mmol/L (98-107); Creatinine Clr Calc Pharmacy 73.9 ml/min; Glucose 174.0 mg/dl (70-99(Fasting)); Potassium 6.4 mmol/L (3.5-5.1); Sodium 134.0 mmol/L (136-145)
[2025-07-15] MEDS: STAT IV/IM STA (09:38)
--- NOTE | 2025-07-15 09:38 | Gastrointestinal Consultation ---
Date of Consultation July 15, 2025 Assessment & Plan (1) Coffee ground emesis: Case discussed with anesthesia, attending bridge attacher, & ED provider. Possible etiologies include gastric ulcers given NSAID use as well as possible variceal bleeding. -NPO -Correct K -Protonix & Octreotide drips to be initiated -Continue to monitor H/H -Continue to monitor BP -IV Reglan 10 mg STAT -EGD in OR today Supervising Physician Co-Signing Physician Notes I personally saw and examined the patient. I have reviewed the chart and agree with the documentation provided by the [facility] including discussion about the assessment, treatment and plan. Briefly, 64 yo male who presented to the ED due to 3 days of melena and an abrupt onset of coffee ground emesis this morning. He notes he has been dry heaving for several days but notes today was the first that he developed hematemesis. He notes epigastric abdominal pain. He uses Meloxicam and Aleve. He notes a history of peptic ulcer disease. He had an EGD in October [address] Fortune that was normal. Colonoscopy at that time noted multiple polyps. Melena and hematemesis noted. Will do emergent egd (ivf, reglan, octreotide, ppi iv, ceftriaxone given cirrhosis and bleeding). EGD with banding today. History of Present Illness Reason for Consultation: Coffee ground emesis History of Present Illness Patient is a 64 yo male who presented to the ED due to 3 days of melena and an abrupt onset of coffee ground emesis this morning. He notes he has been dry heaving for several days but notes today was the first that he developed hematemesis. He notes epigastric abdominal pain. He uses Meloxicam and Aleve. He notes a history of peptic ulcer disease. He had an EGD in October [address] Fortune that was normal. Colonoscopy at that time noted multiple polyps. He notes subsequent EGD and colonoscopy with [facility] in 2023 due to concerns with his blood count but tells me that these did not indicate any alarming concerns.. I do not have copies of EGD & colonoscopy from [facility]. He notes he does not have a history of esophageal varices. He believes he has a history of fatty liver. He tells me he had labs through [facility]/hematology in recent weeks with a normal hemoglobin. [facility] labs show persistent low hemoglobin. He did have a hgb of 13 in December 2024. He is not a heavy drinker. In the ED, a CT of the abdomen/pelvis showed portal hypertension with concern for esophageal varices. H/H on admission 9.8/28.0 while actively bleeding. K was 5.9, patient was hydrated with NSS and K kenny to 6.4. Plt 138. Troponin increased to 30.9. BP currently 114/66. HR 102. Allergies Allergy/AdvReac Type Severity Reaction Status Date / Time No Known Allergies Allergy Verified 06/06/25 14:53 Home Medications Medication Instructions Recorded Confirmed Type aspirin 81 mg tablet,delayed 81 mg PO QAM 05/31/19 07/15/25 History release blood-glucose sensor (Dexcom G7 #1 ea 11/06/23 06/06/25 Rx Sensor device) blood-glucose,aligner barrel and receiver,cont #1 ea 11/06/23 06/06/25 Rx (Dexcom G7 Endoscopy Technician) pantoprazole 40 mg tablet,delayed 40 mg PO DAILY #30 tabs 11/28/23 07/15/25 Rx release glipizide 5 mg tablet 5 mg PO DAILY #90 tabs 09/29/24 07/15/25 Rx metoprolol succinate 25 mg 25 mg PO QAM #90 tabs 09/29/24 07/15/25 Rx tablet,extended release 24 hr levothyroxine 150 mcg tablet 150 mcg PO UD #90 tabs 03/02/25 07/15/25 Rx flash glucose sensor (FreeStyle #2 ea 03/07/25 06/06/25 Rx Russell 2 Sensor kit) blood-glucose sensor (FreeStyle #1 ea 03/23/25 06/06/25 Rx Russell 3 Plus Sensor device) atorvastatin 80 mg tablet 80 mg PO HS #90 tabs 04/22/25 07/15/25 Rx metformin 1,000 mg tablet 1,000 mg PO BID #180 tabs 06/09/25 07/15/25 Rx tirzepatide 12.5 mg/0.5 mL 12.5 mg (0.5 mL) subcut Q7D #6 mL 06/09/25 07/15/25 Rx subcutaneous pen injector allopurinol 300 mg tablet 300 mg PO QAM #90 tabs 07/11/25 07/15/25 Rx meloxicam 7.5 mg tablet 7.5 mg PO DAILY PRN PAIN 07/15/25 07/15/25 History Patient History Medical History Hyperlipidemia CVA (cerebrovascular accident) 06/2015 and 08/2015>both "mild">no residual effects from either time, currently on aspirin Surgical History Hx of colonoscopy H/O uvulectomy S/P tonsillectomy and adenoidectomy Family History Uncle Coronary heart disease Grandfather (Maternal) Coronary heart disease Mother Diabetes Stroke Uncle Diabetes Grandmother (Maternal) Congestive heart failure Other Myocardial infarction Denies family history of Prostate cancer Breast cancer Colorectal cancer Social History Smoking Status: Never smoker Second Hand Exposure: Yes (hx growing up); Do You Dip or Chew Tobacco: No; Hx Alcohol Use: Yes Alcohol Intake Frequency: Monthly or Less Hx Substance Use: Yes Last Used Substance Other:: remote hx-occasional Preferred Language: Mozambican Communication Ability: Effective Visual Impairment: No Limitations Hearing Ability: Normal 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 Beliefs That Will Affect Care: None marital status: Current Living Situation: Spouse current occupational status: 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 [employer] other: 20+ years in the [employer] Feels Safe at Home: Yes Childhood Exposure to Second-Hand Smoke: Yes Dental Care, Regularly: Yes Physical Activity Frequency: 1-2 Times per Week Seatbelt Use: always Sunscreen Use: Yes Assistive Devices: Glasses Review of Systems Constitutional: no fever and no chills Respiratory: no cough and no dyspnea Cardiovascular: no chest pain Gastrointestinal: + abdominal pain (epigastric), + nausea, + coffee ground emesis and + hematemesis Physical Exam Constitutional: well developed Respiratory: normal respiratory effort Cardiovascular: Rate/Rhythm: regular rate Gastrointestinal (Abdomen): normal bowel sounds, soft, nontender, no hepatosplenomegaly Results & Data Vital Signs (Past 12 Hours) Vital Signs Temp Pulse Resp BP Pulse Ox O2 Del Method 07/15/25 09:24 36.9 C 102 H 30 H 113/72 96 07/15/25 08:36 103 H 07/15/25 06:58 108 H 17 99 Room Air 07/15/25 06:52 36.6 C 108 H 17 114/59 L 99 Room Air PG Care Time/CCT Total # of Minutes Spent Total Time Spent with Patient: Total time spent is greater than 50% in coordination of care (as documented) at patient's floor/unit and/or counseling patient: Coding Level of Care Code 26042 INT INP/OBS CARE 3/75MIN Diagnoses Coffee ground emesis K92.0
--- NOTE | 2025-07-15 09:43 | History & Physical Report ---
Date of Service July 15, 2025 Assessment & Plan (1) Metabolic acidosis with normal anion gap and bicarbonate losses: (2) Coffee ground emesis: (3) Type 2 diabetes mellitus with obesity: (4) Lactic acidosis: (5) Liver cirrhosis: (6) Obstructive hypertrophic cardiomyopathy: (7) Obstructive sleep apnea: (8) Hyperkalemia: Plan 64 year old male with history of gastritis and B12 deficiency presents to the ER with melena and #Acute gastrointestinal bleed / melena / coffee ground vomiting / esophageal varices on CT imaging Concern for esophageal varices on CT with new diagnosis of liver cirrhosis INR and platelets unremarkable Pantoprazole, octreotide and ceftriaxone appropriately started in ER Metoclopramide ordered by GI presumably for better visualization NPO, Appreciate GI consult, planning on EGD once labs corrected Admit to ICU #Liver cirrhosis on imaging Cessation from alcohol although probably more likely STEVENS related Workup as outpatient pending acute GI bleeding resolution #Hyperkalemia Suspect due to hemoglobin digestion Insulin/Dextrose + sodium bicarb Repeat BMP following this #Metabolic acidosis without anion gap from bicarbonate losses from GI bleeding Continue sodium bicarb IV drip appropriately started in ER, continue #Lactic acidosis Suspect degree of hemodynamic shock (resolved with IV fluid and blood resuscitation) + metformin use continue to monitor and keep MAP > 65 #Type 2 diabetes mellitus Last took Mounjaro 1 week ago, continue to hold this Hold metformin and #Hypothyroidism Restart levothyroxine when ok from bleeding perspective #Hypertrophic cardiomyopathy Severe asymmetric hypertrophy involving anteroseptum on recent echocardiogram in June but he reports having this all his life Consider cardiology follow up #Obstructive sleep apnea Prior diagnosis, never retested after uvulopalatopharyngoplasty in 1996 Does not wear CPAP, monitor for apneic events #Chronic gout Hold allopurinol #History of stroke 10 years ago with complete resolution of symptoms from tPA, reason for aspirin and atorvastatin Restart atorvastatin when ok from bleeding perspective Hold aspirin in setting of GI bleed VTE Prophylaxis - SCDs Disposition - admit to ICU Admission and Anticipated Discharge Date Admission Date: July 15, 2025 History of Present Illness Chief Complaint: Hematemesis Primary Care Provider: Anibal Barrera MD Brannon Garrett is a 64 year old male with known gastritis on pantoprazole daily who presents to the ER with 2 days of epigastric pain with melena and today felt lightheaded with coffee ground vomiting. He denies scheduled NSAID use but uses Aleve intermittently. Meloxicam that was previously prescribed he took 4 months ago for his knee but none recently. Since coffee ground vomiting this morning he has bee dry heaving but just air coming up. No fresh blood. He had an EGD in October 2023 that showed gastritis but no esophageal varices were seen at that time. He has been seen for pancytopenia in the past and diagnosed with B12 deficiency. Planning on 6 monthly surveillance for this although notably platelets were normal today. Last B12 level was high in June. Allergies Allergy/AdvReac Type Severity Reaction Status Date / Time No Known Allergies Allergy Verified 06/06/25 14:53 Home Medications Medication Instructions Recorded Confirmed Type aspirin 81 mg tablet,delayed 81 mg PO QAM 05/31/19 07/15/25 History release blood-glucose sensor (Dexcom G7 #1 ea 11/06/23 06/06/25 Rx Sensor device) blood-glucose,doll surgeon,cont #1 ea 11/06/23 06/06/25 Rx (Dexcom G7 Hole Digger Truck Driver) pantoprazole 40 mg tablet,delayed 40 mg PO DAILY #30 tabs 11/28/23 07/15/25 Rx release glipizide 5 mg tablet 5 mg PO DAILY #90 tabs 09/29/24 07/15/25 Rx metoprolol succinate 25 mg 25 mg PO QAM #90 tabs 09/29/24 07/15/25 Rx tablet,extended release 24 hr levothyroxine 150 mcg tablet 150 mcg PO UD #90 tabs 03/02/25 07/15/25 Rx flash glucose sensor (FreeStyle #2 ea 03/07/25 06/06/25 Rx Russell 2 Sensor kit) blood-glucose sensor (FreeStyle #1 ea 03/23/25 06/06/25 Rx Russell 3 Plus Sensor device) atorvastatin 80 mg tablet 80 mg PO HS #90 tabs 04/22/25 07/15/25 Rx metformin 1,000 mg tablet 1,000 mg PO BID #180 tabs 06/09/25 07/15/25 Rx tirzepatide 12.5 mg/0.5 mL 12.5 mg (0.5 mL) subcut Q7D #6 mL 06/09/25 07/15/25 Rx subcutaneous pen injector allopurinol 300 mg tablet 300 mg PO QAM #90 tabs 07/11/25 07/15/25 Rx meloxicam 7.5 mg tablet 7.5 mg PO DAILY PRN PAIN 07/15/25 07/15/25 History Past Med/Surg History Problem List (Updated 07/15/25 @ 10:54 by Kingsley Reese MD) Hyperkalemia Liver cirrhosis Lactic acidosis Metabolic acidosis with normal anion gap and bicarbonate losses Coffee ground emesis Type 2 diabetes mellitus with obesity Degenerative tear of left medial meniscus Pancytopenia Current use of proton pump inhibitor Encounter for pre-operative examination Epigastric pain Diarrhea Anemia, mild Rupture of right proximal biceps tendon Gout (Chronic) Hypertension (Chronic) Left ventricular hypertrophy (Chronic) Obstructive hypertrophic cardiomyopathy (Chronic) f/u mn cardio Obstructive sleep apnea (Chronic) hx-had sx to repair Type 2 diabetes mellitus (Chronic) Hypothyroidism (Chronic) Medical History Hyperlipidemia CVA (cerebrovascular accident) 06/2015 and 08/2015>both "mild">no residual effects from either time, currently on aspirin Surgical History Hx of colonoscopy H/O uvulectomy S/P tonsillectomy and adenoidectomy Family History Uncle Coronary heart disease Grandfather (Maternal) Coronary heart disease Mother Diabetes Stroke Uncle Diabetes Grandmother (Maternal) Congestive heart failure Other Myocardial infarction Denies family history of Prostate cancer Breast cancer Colorectal cancer Social History Smoking Status: Never smoker Second Hand Exposure: Yes (hx growing up); Do You Dip or Chew Tobacco: No; Hx Alcohol Use: Yes Alcohol Intake Frequency: Monthly or Less Hx Substance Use: Yes Last Used Substance Other:: remote hx-occasional Preferred Language: [place] Communication Ability: Effective Visual Impairment: No Limitations Hearing Ability: Normal Licensed Psychologist Manager Required: No Beliefs That Will Affect Care: None marital status: Current Living Situation: Spouse current occupational status: 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 [employer] other: 20+ years in the [place] Feels Safe at Home: Yes Childhood Exposure to Second-Hand Smoke: Yes Dental Care, Regularly: Yes Physical Activity Frequency: 1-2 Times per Week Seatbelt Use: always Sunscreen Use: Yes Assistive Devices: Glasses Review of Systems Review of Systems: All systems reviewed & are unremarkable except as noted in HPI & below Physical Exam Constitutional: WD/WN, vitals as above Respiratory: normal respiratory effort, lungs clear to auscultation Cardiovascular: RRR, no murmur, no edema Gastrointestinal (Abdomen): Inspection/Auscultation: abdomen normal to inspection; abdomen not distended Percussion/Palpation: + abdomen tender (epigastric) and abdomen soft; no guarding and abdomen not rigid Musculoskeletal: no cyanosis or clubbing, extremities motor strength 5/5 Skin: no rashes, warm and dry Neurologic: moves all extremities and awake; not confused Psychiatric: A+Ox3, euthymic affect Results & Data Results & Data Vital Signs (Past 12 Hours) Vital Signs Temp Pulse Resp BP Pulse Ox O2 Del Method 07/15/25 09:39 37.1 C 102 H 20 114/66 07/15/25 09:24 36.9 C 102 H 30 H 113/72 96 07/15/25 08:36 103 H 07/15/25 06:58 108 H 17 99 Room Air 07/15/25 06:52 36.6 C 108 H 17 114/59 L 99 Room Air Laboratory Results Abnormal lab results 07/15/25 07/15/25 07/15/25 Range/Units 06:30 07:01 07:36 RBC 3.37 L (4.70-6.10) M/uL Hgb 11.1 L (14.0-18.0) g/dL POC Hgb 10.5 L (14.0-18.0) g/dl Hct 32.3 L (42.0-52.0) % POC Hct 31 L (42-52) % RDW Std Deviation 51.4 H (36.4-46.3) fL RDW Coeff of Court 14.7 H (11.5-14.5) % Neut # (Auto) 6.67 H (1.40-6.50) K/uL PT 13.0 H (9.0-12.0) Seconds INR 1.2 H (0.9-1.1) Sodium (136-145) mmol/L POC Potassium 5.8 H (3.3-5.0) mmol/L Potassium 5.9 H (3.5-5.1) mmol/L Carbon Dioxide 17 L (21-32) mmol/L POC Total CO2 17 L (24-31) mmol/L Anion Gap 14 H (3-11) POC BUN 33 H (7-18) mg/dl BUN 34 H (6-23) mg/dl BUN/Creatinine Ratio 27.6 H (10-20) Glucose 183 H (70-99(Fasting)) mg/dl POC Glucose (70-99) mg/dl POC Glucose (other) 175 H (70-99) mg/dl Lactate (0.4-2.0) mmol/L Calcium 10.6 H (8.6-10.3) mg/dl Total Bilirubin 1.7 H (0.2-1.0) mg/dl AST 50 H (13-39) U/L ALT 55 H (7-52) U/L Troponin I High Sens 30.9 H (0-20) pg/ml Crossmatch See Detail 07/15/25 07/15/25 07/15/25 Range/Units 07:38 08:31 09:28 RBC (4.70-6.10) M/uL Hgb 9.8 L (14.0-18.0) g/dL POC Hgb (14.0-18.0) g/dl Hct 28.0 L (42.0-52.0) % POC Hct (42-52) % RDW Std Deviation (36.4-46.3) fL RDW Coeff of Court (11.5-14.5) % Neut # (Auto) (1.40-6.50) K/uL PT (9.0-12.0) Seconds INR (0.9-1.1) Sodium 134 L (136-145) mmol/L POC Potassium (3.3-5.0) mmol/L Potassium 6.4 H* (3.5-5.1) mmol/L Carbon Dioxide 17 L (21-32) mmol/L POC Total CO2 (24-31) mmol/L Anion Gap (3-11) POC BUN (7-18) mg/dl BUN 35 H (6-23) mg/dl BUN/Creatinine Ratio 30.4 H (10-20) Glucose 174 H (70-99(Fasting)) mg/dl POC Glucose (70-99) mg/dl POC Glucose (other) (70-99) mg/dl Lactate 7.1 H* 6.7 H* 6.8 H* (0.4-2.0) mmol/L Calcium (8.6-10.3) mg/dl Total Bilirubin (0.2-1.0) mg/dl AST (13-39) U/L ALT (7-52) U/L Troponin I High Sens (0-20) pg/ml Crossmatch 07/15/25 07/15/25 Range/Units 09:52 10:58 RBC (4.70-6.10) M/uL Hgb (14.0-18.0) g/dL POC Hgb (14.0-18.0) g/dl Hct (42.0-52.0) % POC Hct (42-52) % RDW Std Deviation (36.4-46.3) fL RDW Coeff of Court (11.5-14.5) % Neut # (Auto) (1.40-6.50) K/uL PT (9.0-12.0) Seconds INR (0.9-1.1) Sodium (136-145) mmol/L POC Potassium (3.3-5.0) mmol/L Potassium (3.5-5.1) mmol/L Carbon Dioxide (21-32) mmol/L POC Total CO2 (24-31) mmol/L Anion Gap (3-11) POC BUN (7-18) mg/dl BUN (6-23) mg/dl BUN/Creatinine Ratio (10-20) Glucose (70-99(Fasting)) mg/dl POC Glucose 177 H 204 H (70-99) mg/dl POC Glucose (other) (70-99) mg/dl Lactate (0.4-2.0) mmol/L Calcium (8.6-10.3) mg/dl Total Bilirubin (0.2-1.0) mg/dl AST (13-39) U/L ALT (7-52) U/L Troponin I High Sens (0-20) pg/ml Crossmatch Diagnostic Findings CHEST CT WITH CONTRAST CT DOSE: 2510.54 mGy.cm HISTORY: epigastric abd pain, coffee ground emesis TECHNIQUE: Multiaxial CT images of the chest were performed following the IV administration of 90 cc of Optiray. A dose lowering technique was utilized adhering to the principles of ALARA. COMPARISON STUDY: 02/28/2020 chest x-ray FINDINGS: There is mildly progressive mild elevation of the right hemidiaphragm. There is mild atelectasis at the right lung base. No other pulmonary consolidation or pleural effusion seen. No significant pulmonary nodule. No enlarged adenopathy. No pericardial effusion. There are diffuse coronary artery calcifications. No acute osseous finding seen. IMPRESSION: No acute findings seen. CT SCAN OF THE ABDOMEN AND PELVIS WITH IV CONTRAST CLINICAL HISTORY: Epigastric pain. Coffee-ground emesis. COMPARISON STUDY: Abdominal ultrasound November 05, 2023. TECHNIQUE: Following the IV administration of 94 cc of Optiray 320, CT scan of the abdomen and pelvis is performed from the lung bases to the proximal femora. Images are reviewed in the axial, sagittal, and coronal planes. IV contrast was administered without complication. A dose lowering technique was utilized adhering to the principles of ALARA. FINDINGS: Please note that the chest CT will be reported separately. There is moderate elevation of the right hemidiaphragm. No pneumatosis, free air or portal venous gas is present. There is probable hepatic steatosis. In addition, there is mild lobular contour of the liver surface with enlargement of the cau date lobe and lateral segment consistent with cirrhosis. No hepatic lesions are identified on the venous phase exam. Spleen is mildly enlarged. There are multiple small abdominal and pelvic varices, including paraesophageal varices. Recanalized periumbilical vein is noted. There is no ascites. Gallbladder wall thickening is a nonspecific finding in the setting of cirrhosis. The gallbladder is not distended. The findings do not suggest acute cholecystitis. Adrenal glands, kidneys and pancreas are unremarkable. There is no biliary or pancreatic ductal dilatation. No hydronephrosis. Prominent mesenteric lymph nodes are likely benign. There is mild circumferential wall thickening of the ascending colon. No evidence for a bowel obstruction. Normal appendix. Apparent jejunal wall thickening is probably related to underdistention. The main, left and right portal veins are patent. IMPRESSION: 1. Cirrhotic liver with probable hepatic steatosis. Mild splenomegaly and varices formation indicative of portal hypertension. No ascites. 2. Wall thickening of the ascending colon. This is likely related to portal hypertension although a nonspecific colitis could appear similar. 3. No bowel obstruction. Normal appendix. Medications Administered ER Medications Given: Pantoprazole 80mg IV bolus and dip Normal saline 1000ml bolus Ceftriaxone 2000mg IV Octreotide 50 mcg IV bolus and drip Insulin 10 units / Dextrose 50% 50ml ECG Rate (beats per minute): 100 Rhythm: normal sinus Findings: + LAFB Comparison ECG Date: from (17 August 2016) Change: the following changes noted (rate related changes only, lead placement changes, less TWI) Code Status & VTE Plan Code Status Full VTE Prophylaxis Plan VTE Prophylaxis will be ordered: Yes PG Care Time/CCT Total # of Minutes Spent Total Time Spent with Patient: Total time spent is greater than 50% in coordination of care (as documented) at patient's floor/unit and/or counseling patient: Coding Level of Care Code 07470 INT INP/OBS CARE 3/75MIN Diagnoses Metabolic acidosis with normal anion gap and bicarbonate losses E87.20 Coffee ground emesis K92.0 Type 2 diabetes mellitus with obesity E11.9; E66.9 Lactic acidosis E87.20 Liver cirrhosis K74.60 Obstructive hypertrophic cardiomyopathy I42.1 Obstructive sleep apnea G47.33 Hyperkalemia E87.5
[2025-07-15] MEDS: METOCLOPRAMIDE HCL INJ 5 MG/ML 2 ML VIAL IV STA (09:45)
[2025-07-15] MEDS: INSULIN HUMAN REGULAR PER UNIT 10 UNITS in SYRINGE 9.9 ML IV STA ×2 (09:52→12:10)
[2025-07-15] MEDS: DEXTROSE 50% 50 ML SYRINGE IV STA ×2 (09:53→12:10)
[2025-07-15] MEDS: OCTREOTIDE ACETATE 500 MCG in SODIUM CHLORIDE 0.9% 100 ML IV SCH (10:00)
[2025-07-15] MEDS: cefTRIAXone SODIUM 2,000 MG/50 ML BAG IV STA (10:42)
[2025-07-15] MEDS ORDERED: GLUCAGON FOR INJ 1 MG VIAL SQ PRN (10:59)
[2025-07-15] MEDS ORDERED: CARBOHYDRATES FOR HYPOGLYCEMIA PO PRN (10:59)
[2025-07-15] MEDS ORDERED: DEXTROSE 50% 50 ML SYRINGE IV PRN (10:59)
[2025-07-15] MEDS ORDERED: GLUCOSE 10 TAB/TUBE PO PRN (10:59)
[2025-07-15] MEDS ORDERED: GLUCOSE 40% GEL 15 GM TUBE PO PRN (10:59)
[2025-07-15] MEDS: SODIUM BICARBONATE 8.4% 150 MEQ in DEXTROSE 5% 1,000 ML IV STA (11:31)
[2025-07-15 11:33] LABS: Anion Gap 11.0 (3-11); Blood Urea Nitrogen 35.0 mg/dl (6-23); Calcium 9.3 mg/dl (8.6-10.3); Carbon Dioxide 16.0 mmol/L (21-32); Chloride 108.0 mmol/L (98-107); Creatinine Clr Calc Pharmacy 72.1 ml/min; Glucose 205.0 mg/dl (70-99(Fasting)); Potassium 5.5 mmol/L (3.5-5.1); Sodium 135.0 mmol/L (136-145)
[2025-07-15] MEDS ORDERED: ROCURONIUM BROMIDE 10 MG/ML 5 ML VIAL IV ONE (11:55)
[2025-07-15] MEDS ORDERED: ONDANSETRON INJ 2 MG/ML 2 ML VIAL IV PRN (12:13)
[2025-07-15] MEDS ORDERED: ATROPINE SULFATE 0.1 MG/ML 10ML SYR IV PRN (12:13)
--- NOTE | 2025-07-15 12:13 | Anesthesiology Consultation ---
Date of Service July 15, 2025 Assessment & Plan Chart Review Chart Review: Acceptable Risk for Surgery Consults Requested none ASA [id number] Proposed Anesthesia Anesthesia Type: General Risk / Benefits Reviewed With: PT / POA / Parent / Guardian, Accepts Plan and Informed Consent Obtained Additional Notes Discussed plan with pt to perform EGD with RSI. K improving on recheck, RN giving repeat insulin dextrose in ICU before going back to OR. No evidence of hyperK on ECG History Surgery Operation Date: 07/15/25 09:20 Proposed Procedures p Esophagogastroduodenoscopy - Dangelo Soto MD Height/Weight Height: 5 ft 8 in Weight: 93.894 kg Allergies Allergy/AdvReac Type Severity Reaction Status Date / Time No Known Allergies Allergy Verified 06/06/25 14:53 Medications Home Medications Medication Instructions Recorded Confirmed Last Taken aspirin 81 mg tablet,delayed 81 mg PO QAM 05/31/19 07/15/25 11/19/23 release blood-glucose sensor (Dexcom G7 #1 ea 11/06/23 06/06/25 Unknown Sensor device) blood-glucose,rerecording mixer,cont #1 ea 11/06/23 06/06/25 Unknown (Dexcom G7 Director Talent) pantoprazole 40 mg tablet,delayed 40 mg PO DAILY #30 tabs 11/28/23 07/15/25 Unknown release glipizide 5 mg tablet 5 mg PO DAILY #90 tabs 09/29/24 07/15/25 Unknown metoprolol succinate 25 mg 25 mg PO QAM #90 tabs 09/29/24 07/15/25 Unknown tablet,extended release 24 hr levothyroxine 150 mcg tablet 150 mcg PO UD #90 tabs 03/02/25 07/15/25 Unknown flash glucose sensor (FreeStyle #2 ea 03/07/25 06/06/25 Unknown Russell 2 Sensor kit) blood-glucose sensor (FreeStyle #1 ea 03/23/25 06/06/25 Unknown Russell 3 Plus Sensor device) atorvastatin 80 mg tablet 80 mg PO HS #90 tabs 04/22/25 07/15/25 Unknown metformin 1,000 mg tablet 1,000 mg PO BID #180 tabs 06/09/25 07/15/25 Unknown tirzepatide 12.5 mg/0.5 mL 12.5 mg (0.5 mL) subcut Q7D #6 mL 10/09/25 11/14/25 Unknown subcutaneous pen injector allopurinol 300 mg tablet 300 mg PO QAM #90 tabs 07/11/25 07/15/25 Unknown meloxicam 7.5 mg tablet 7.5 mg PO DAILY PRN PAIN 07/15/25 07/15/25 Unknown Active Medications Generic Name Dose Route Start Last Admin Trade Name Freq PRN Reason Stop Dose Admin Pantoprazole Sodium 40 mg/ 100 mls @ 20 mls/hr 07/15/25 07:15 07/15/25 08:28 Dextrose IV 08/14/25 07:14 8 mg/hr Q5H PRETTY 20 mls/hr Administration 8 MG/HR Sodium Bicarbonate 150 meq/ 1,150 mls @ 290 mls/hr 07/15/25 09:22 07/15/25 11:31 Dextrose IV 07/15/25 13:19 290 mls/hr .Q3H58M STA Administration NPO Date Last Intake of Fluids: 07/15/25 Time Last Intake of Fluids: 04:30 Last Intake of Fluids Comment: "few sips of water" Date Last Intake of Solids: 07/14/25 Time Last Intake of Solids: 17:00 Last Intake of Solids Comment: peice of toast Past Medical History Medical History Hyperlipidemia CVA (cerebrovascular accident) 06/2015 and 08/2015>both "mild">no residual effects from either time, currently on aspirin Past Family History Family History Uncle Coronary heart disease Grandfather (Maternal) Coronary heart disease Mother Diabetes Stroke Uncle Diabetes Grandmother (Maternal) Congestive heart failure Other Myocardial infarction Denies family history of Prostate cancer Breast cancer Colorectal cancer Past Surgical History Surgical History Hx of colonoscopy H/O uvulectomy S/P tonsillectomy and adenoidectomy Social History Smoking Status: Never smoker Do You Dip or Chew Tobacco: No Hx Alcohol Use: Yes alcohol intake frequency: holidays/special occasions only Hx Substance Use: Yes substance use type: former substance user and marijuana Last Used Substance Other:: remote hx-occasional Physical Exam Vital Signs Last Vital Signs Temp 37 C 07/15/25 12:08 Pulse 95 H 07/15/25 12:08 Resp 18 07/15/25 12:08 BP 115/52 L 07/15/25 12:08 Pulse Ox 99 07/15/25 12:08 O2 Del Method Room Air 07/15/25 11:04 Constitutional no acute distress ENMT Mouth: no TMJ abnormality Thyromental Distance: < 3.5 Finger Breadths Mallampati Class: III Neck normal visual inspection Respiratory normal respiratory effort Cardiovascular Rate/Rhythm: regular rate Neurologic moves all extremities Psychiatric Orientation: alert and oriented x 3 Testing Laboratory Results 07/15/25 08:31 07/15/25 11:00 PT 13.0 Seconds (9.0-12.0) H 07/15/25 06:30 INR 1.2 (0.9-1.1) H 07/15/25 06:30 APTT 23 Seconds (21-31) 07/15/25 06:30 Blood Type O Positive 07/15/25 07:36 Antibody Screen NEGATIVE 07/15/25 07:36 07/15/25 07/15/25 07/15/25 10:58 09:52 07:01 POC Glucose 204 H 177 H POC Glucose (other) 175 H
[2025-07-15] MEDS: OCTREOTIDE BOLUS FROM BAG IV ONE (12:38)
[2025-07-15] MEDS: INSULIN ASPART PER UNIT CHARGE SC SCH ×2 (12:39→21:10)
[2025-07-15] MEDS ORDERED: SUGAMMADEX SODIUM 200 MG/2 ML VIAL IV ONE (12:39)
--- NOTE | 2025-07-15 12:46 | History & Physical Bridge Note ---
Date of Service July 15, 2025 History & Physical Bridge Note I have examined the patient, reviewed the History & Physical and in the interval since the performance of the History & Physical I have noted the following changes of clinical significance: no changes noted EGD done after patient was intubated. 3 columns of grade 2-3 varices noted 1 had a red jaguar sign 3 bands deployed and the varices were decompressed. Moderate portal hypertensive gastropathy noted. There was no active bleeding but old blood was most certainly noted. Duodenum was normal except for old blood in the duodenum Plan: Patient needs to be on ceftriaxone during this hospitalization given cirrhosis and upper GI bleeding, continue octreotide for the next 48 hours. N.p.o. for now for dinner he can have some liquids. Can just put him on PPI twice daily during this hospitalization if his blood pressure tolerates he would be a good candidate for nonselective beta-nikita like nadolol we will have to wait and see how that does as he just had acute GI bleeding.
[2025-07-15] MEDS ORDERED: ONDANSETRON INJ 2 MG/ML 2 ML VIAL ONE (12:48)
--- NOTE | 2025-07-15 12:55 | Anesthesiology Progress Note ---
Date of Service July 15, 2025 Anesthesia Post Procedure Vital Signs Vital Signs: Temp Pulse Resp BP Pulse Ox O2 Del Method O2 Del Method 07/15/25 12:15 93 H 24 98 07/15/25 12:10 121/64 07/15/25 12:10 121/64 07/15/25 12:10 121/64 07/15/25 12:10 121/64 07/15/25 12:10 121/64 07/15/25 12:09 93 H 32 H 96 07/15/25 12:08 37 C 95 H 18 115/52 L 99 07/15/25 12:00 94 H 35 H 96 07/15/25 12:00 115/54 L 07/15/25 12:00 115/54 L 07/15/25 12:00 115/54 L 07/15/25 12:00 115/54 L 07/15/25 12:00 115/54 L 07/15/25 11:54 36.6 C 91 H 14 123/66 94 07/15/25 11:50 123/66 07/15/25 11:50 123/66 07/15/25 11:50 123/66 07/15/25 11:50 123/66 07/15/25 11:50 123/66 07/15/25 11:50 36.6 C 94 H 16 114/61 93 07/15/25 11:48 95 H 24 95 07/15/25 11:45 98 H 25 H 97 07/15/25 11:40 114/61 07/15/25 11:40 114/61 07/15/25 11:40 114/61 07/15/25 11:40 114/61 07/15/25 11:40 114/61 07/15/25 11:39 98 H 23 97 07/15/25 11:30 113/52 L 07/15/25 11:30 113/52 L 07/15/25 11:30 113/52 L 07/15/25 11:30 113/52 L 07/15/25 11:30 113/52 L 07/15/25 11:30 100 H 16 96 07/15/25 11:21 100 H 18 97 07/15/25 11:20 92/55 L 07/15/25 11:20 92/55 L 07/15/25 11:20 92/55 L 07/15/25 11:20 92/55 L 07/15/25 11:20 92/55 L 07/15/25 11:18 98 H 16 93 07/15/25 11:18 97 H 17 105/50 L 91 07/15/25 11:15 98 H 23 95 07/15/25 11:10 105/50 L 07/15/25 11:10 105/50 L 07/15/25 11:10 105/50 L 07/15/25 11:10 105/50 L 07/15/25 11:10 105/50 L 07/15/25 11:09 100 H 22 95 07/15/25 11:04 Room Air 07/15/25 11:00 96/55 L 07/15/25 11:00 96/55 L 07/15/25 11:00 96/55 L 07/15/25 11:00 96/55 L 07/15/25 11:00 96/55 L 07/15/25 11:00 36.5 C 07/15/25 11:00 96/55 L 07/15/25 11:00 98 H 23 95 07/15/25 10:59 Room Air 07/15/25 10:51 100 H 26 H 96 07/15/25 10:50 97/54 L 07/15/25 10:50 97/54 L 07/15/25 10:50 97/54 L 07/15/25 10:48 100 H 26 H 95 07/15/25 10:42 101 H 23 96 07/15/25 10:33 103 H 25 H 96 07/15/25 10:31 85/55 L 07/15/25 10:31 85/55 L 07/15/25 10:31 85/55 L 07/15/25 10:31 85/55 L 07/15/25 10:31 85/55 L 07/15/25 10:30 102 H 10 L 95 07/15/25 10:10 109/64 07/15/25 10:10 109/64 07/15/25 10:09 105 H 26 H 94 07/15/25 10:05 109/62 07/15/25 10:05 109/62 07/15/25 10:05 109/62 07/15/25 10:05 109/62 07/15/25 10:05 109/62 07/15/25 10:03 103 H 38 H 07/15/25 10:00 100 H 26 H 07/15/25 10:00 116/64 07/15/25 10:00 116/64 07/15/25 10:00 116/64 07/15/25 10:00 116/64 07/15/25 10:00 116/64 07/15/25 09:56 98/68 L 07/15/25 09:56 98/68 L 07/15/25 09:56 98/68 L 07/15/25 09:56 98/68 L 07/15/25 09:54 102 H 25 H 07/15/25 09:54 36.7 C 104 H 22 116/64 98 07/15/25 09:50 117/75 07/15/25 09:50 117/75 07/15/25 09:50 117/75 07/15/25 09:50 117/75 07/15/25 09:50 117/75 07/15/25 09:48 107 H 23 07/15/25 09:45 103 H 19 07/15/25 09:45 124/91 07/15/25 09:45 124/91 07/15/25 09:45 124/91 07/15/25 09:45 124/91 07/15/25 09:45 124/91 07/15/25 09:40 114/66 07/15/25 09:40 114/66 07/15/25 09:40 114/66 07/15/25 09:40 114/66 07/15/25 09:40 114/66 07/15/25 09:39 101 H 26 H 07/15/25 09:39 114/70 07/15/25 09:39 37.1 C 102 H 20 114/66 07/15/25 09:37 87/64 L 07/15/25 09:36 103 H 24 07/15/25 09:31 120/65 07/15/25 09:31 120/65 07/15/25 09:31 120/65 07/15/25 09:24 36.9 C 102 H 30 H 113/72 96 07/15/25 08:36 103 H 07/15/25 06:58 108 H 17 99 Room Air 07/15/25 06:52 36.6 C 108 H 17 114/59 L 99 Room Air Transfer of Care Handoff Completed per policy Notes Mental Status: alert / awake / arousable Patient Amnestic to Procedure: Yes Nausea / Vomiting: adequately controlled Pain: adequately controlled Airway Patency, RR, SpO2: stable & adequate BP & HR: stable & adequate Hydration State: stable & adequate Anesthetic Complications: no major complications apparent
[2025-07-15] MEDS ORDERED: LIDOCAINE 2% 2 ML VIAL/AMP(20MG/ML) INFIL ONE (13:07)
[2025-07-15] MEDS ORDERED: PROPOFOL IV EMULSION 10 MG/ML 20 ML VIAL IV ONE (13:07)
[2025-07-15] MEDS ORDERED: PHENYLEPHRINE 100MCG/ML 5ML SYR ONE (13:08)
--- NOTE | 2025-07-15 13:54 | Critical Care Consultation ---
Date of Consultation July 15, 2025 Assessment & Plan (1) Hyperkalemia: (2) Liver cirrhosis: (3) Lactic acidosis: (4) Coffee ground emesis: (5) Type 2 diabetes mellitus with obesity: (6) UGI bleed: (7) Esophageal varices: (8) Portal hypertensive gastropathy: Plan Reason for ICU: patient admitted with UGI bleed, hyperkalemia, and lactic acidosis Neuro/Psych: No issues History of CVA in 2014 Cardiac/Vascular: Tachycardia, Hypotension Elevated troponin: suspected on basis of demand-ischemia Diffuse coronary artery calcifications Abnormal Echo: Systolic anterior motion of mitral valve, Mildly reduced LV systolic function, Mildly enlarged LA, Mildly enlarged LV, Mildly increased RVSP Hypertrophic cardiomyopathy History of Hypertension Respiratory: History of ANGELITA post uvulopalatoplasty GI/Nutrition: Dry heaving, Epigastric abdominal pain, Coffee ground emesis, Hematemesis, Melena, Nausea Diarrhea Old blood in duodenum (EGD) Grade 2-3 esophageal varices (EGD) Portal hypertensive gastropathy (EGD) Cirrhotic liver: non-alcoholic Portal hypertension Paraesophageal varices Wall thickening of ascending colon /RENAL/LYTES: Hyperkalemia suspected on basis of absorption of gastric blood with mild renal impairment Metabolic/Lactic acidosis could be partly secondary to accumulation of Metformin: improved ENDO: Type 2 DM Rheum/MS: History of Gout HEME/Onc: Splenomegaly: probably portal hypertension Pancytopenia ID: No issues at this time. Feed/Fluids: Clear liquids. No supplemental IV fluids Analgesia: Not needed at this time Sedation: Not needed at this time DVT prophylaxis: SCDs. Heparins contraindicated due to bleeding. Head-up: Not applicable Ulcer Prophylaxis: IV Protonix Glycemic Control: SSI Sp. Br. Trial: Not applicable Bowel Care: No issues at this time Ind. Cath: Peripheral Antibiotics: Rocephin Code-Status: Full Code Disposition: ICU observation I have personally spent 45 minutes of critical care time in the direct management of this patient. This is a life/limb threatening event. This includes time spent evaluating the patient, direct bedside care, chart review, placing orders, interpreting diagnostic studies, communicating with consultants, attending providers, patient, and family members, as well as required patient management activities. This time is exclusive of all separately-billable procedures and teaching time, and separate from and in addition to any other critical care service time. History of Present Illness Reason for Consultation: UGI bleed, metabolic acidosis with Lactic acidosis, hyperkalemia Attending Physician: Kingsley Reese MD History of Present Illness The patient is a very pleasant 64-year-old male who presented to the ED with complaints of abdominal pain, coffee ground emesis, and diarrhea. He reported two days of epigastric discomfort without radiation, associated with dry heaving, and on the morning of presentation, he experienced an episode of coffee-ground emesis. He also described melena for several days prior. He denied chest pain, dyspnea, fevers, or chills. He had not taken his daily aspirin that morning and denied any history of anticoagulant use. He reported intermittent use of Aleve and remote use of meloxicam. There was no history of scheduled NSAID use. He has a history of peptic ulcer disease, with a normal EGD in October 2023, and a history of B12 deficiency and pancytopenia. Initial laboratory evaluation revealed anemia (Hgb 11.1 then 9.8, down from 13.0 around a month ago), hyperkalemia (K up to 6.4), wide-anion gap metabolic acidosis with elevated lactate (up to 7.1), mild transaminitis, and elevated total bilirubin. Troponin was mildly elevated (30.9), likely demand-related. Imaging with CT of the abdomen and pelvis demonstrated cirrhotic liver with probable hepatic steatosis, mild splenomegaly, multiple abdominal and pelvic varices including paraesophageal varices, and evidence of portal hypertension. No ascites or acute intra-abdominal process was identified. During his ED course, he received IV fluids, ceftriaxone, octreotide, pantoprazole, sodium bicarbonate, and insulin/dextrose for hyperkalemia. He was admitted to the ICU for further management and underwent emergent EGD, which revealed three columns of grade 23 esophageal varices (one with a red jaguar sign), which were banded, and moderate portal hypertensive gastropathy. No active bleeding was seen, but old blood was present in the stomach and duodenum. His past medical history included T2DM with obesity, HTN, hyperlipidemia, chronic gout, hypothyroidism, ANGELITA (status post-uvulopalatopharyngoplasty, not on CPAP), obstructive hypertrophic cardiomyopathy (severe asymmetric septal hypertrophy on recent echo), history of CVA (2014, 2016, both mild, no residual deficits), chronic pancytopenia with B12 deficiency, mild anemia, degenerative tear of the left medial meniscus, and remote rupture of the right proximal biceps tendon. He has a history of peptic ulcer disease and was on chronic PPI therapy. Note from 07/15/2025: Allergies Allergy/AdvReac Type Severity Reaction Status Date / Time No Known Allergies Allergy Verified 06/06/25 14:53 Home Medications Medication Instructions Recorded Confirmed Type aspirin 81 mg tablet,delayed 81 mg PO QAM 05/31/19 07/15/25 History release blood-glucose sensor (Dexcom G7 #1 ea 11/06/23 06/06/25 Rx Sensor device) blood-glucose,spinner hand,cont #1 ea 11/06/23 06/06/25 Rx (Dexcom G7 Disc Recordist) pantoprazole 40 mg tablet,delayed 40 mg PO DAILY #30 tabs 11/28/23 07/15/25 Rx release glipizide 5 mg tablet 5 mg PO DAILY #90 tabs 09/29/24 07/15/25 Rx metoprolol succinate 25 mg 25 mg PO QAM #90 tabs 09/29/24 07/15/25 Rx tablet,extended release 24 hr levothyroxine 150 mcg tablet 150 mcg PO UD #90 tabs 03/02/25 07/15/25 Rx flash glucose sensor (FreeStyle #2 ea 03/07/25 06/06/25 Rx Russell 2 Sensor kit) blood-glucose sensor (FreeStyle #1 ea 03/23/25 06/06/25 Rx Russell 3 Plus Sensor device) atorvastatin 80 mg tablet 80 mg PO HS #90 tabs 04/22/25 07/15/25 Rx metformin 1,000 mg tablet 1,000 mg PO BID #180 tabs 06/09/25 07/15/25 Rx tirzepatide 12.5 mg/0.5 mL 12.5 mg (0.5 mL) subcut Q7D #6 mL 06/09/25 07/15/25 Rx subcutaneous pen injector allopurinol 300 mg tablet 300 mg PO QAM #90 tabs 07/11/25 07/15/25 Rx meloxicam 7.5 mg tablet 7.5 mg PO DAILY PRN PAIN 07/15/25 07/15/25 History Patient History Medical History Hyperlipidemia CVA (cerebrovascular accident) 06/2015 and 08/2015>both "mild">no residual effects from either time, currently on aspirin Surgical History Hx of colonoscopy H/O uvulectomy S/P tonsillectomy and adenoidectomy Family History Uncle Coronary heart disease Grandfather (Maternal) Coronary heart disease Mother Diabetes Stroke Uncle Diabetes Grandmother (Maternal) Congestive heart failure Other Myocardial infarction Denies family history of Prostate cancer Breast cancer Colorectal cancer Social History Smoking Status: Never smoker Second Hand Exposure: Yes (hx growing up); Do You Dip or Chew Tobacco: No; Hx Alcohol Use: Yes Alcohol Intake Frequency: Monthly or Less Hx Substance Use: Yes Last Used Substance Other:: remote hx-occasional Preferred Language: Eritrean Communication Ability: Effective Visual Impairment: No Limitations Hearing Ability: Normal Mobile Marketing Specialist Required: No Beliefs That Will Affect Care: None marital status: Current Living Situation: Spouse current occupational status: 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 [employer] other: 20+ years in the [employer] Feels Safe at Home: Yes Childhood Exposure to Second-Hand Smoke: Yes Dental Care, Regularly: Yes Physical Activity Frequency: 1-2 Times per Week Seatbelt Use: always Sunscreen Use: Yes Assistive Devices: Glasses Review of Systems Review of Systems: All systems reviewed & are unremarkable except as noted in HPI & below Physical Exam Physical Exam: General: In no acute distress, using Oxygenvia nasal cannula. Skin: Warm and dry to touch. Noobvious lesions. Eyes: Anicteric.Noconjunctival hyperemia or exudates.No periorbital edema. ENT: No oral thrush. No oropharyngeal erythema or exudates. S/P Uvuloplasty. Neck: No palpable masses or adenopathy. Respiratory: Diffusely decreased breath sounds, no wheezing or crackles. No use of accessory muscles and no prolonged exhalation. Cardiac: Distant sounds, regular rhythm, no murmurs, no gallops, no rubs; could not appreciate JV pulse elevation. GI: Soft, nontender. Extremities No clubbing,no cyanosis,no edema. Neuro: No gross motor deficits. Seems appropriate. No facial-droop. Speech is clear. Results & Data Results & Data Vital Signs (Past 12 Hours) Vital Signs Temp Pulse Pulse Resp BP BP Pulse Ox 07/15/25 13:26 86 19 92/50 L 97 07/15/25 13:16 86 23 103/66 96 07/15/25 13:06 88 21 100/60 92 07/15/25 12:56 37.1 C 96 H 21 104/71 96 07/15/25 12:15 93 H 24 98 07/15/25 12:10 121/64 07/15/25 12:10 121/64 07/15/25 12:10 121/64 07/15/25 12:10 121/64 07/15/25 12:10 121/64 07/15/25 12:09 93 H 32 H 96 07/15/25 12:08 37 C 95 H 18 115/52 L 99 07/15/25 12:00 94 H 35 H 96 07/15/25 12:00 115/54 L 07/15/25 12:00 115/54 L 07/15/25 12:00 115/54 L 07/15/25 12:00 115/54 L 07/15/25 12:00 115/54 L 07/15/25 11:54 36.6 C 91 H 14 123/66 94 07/15/25 11:50 123/66 07/15/25 11:50 123/66 07/15/25 11:50 123/66 07/15/25 11:50 123/66 07/15/25 11:50 123/66 07/15/25 11:50 36.6 C 94 H 16 114/61 93 07/15/25 11:48 95 H 24 95 07/15/25 11:45 98 H 25 H 97 07/15/25 11:40 114/61 07/15/25 11:40 114/61 07/15/25 11:40 114/61 07/15/25 11:40 114/61 07/15/25 11:40 114/61 07/15/25 11:39 98 H 23 97 07/15/25 11:30 113/52 L 07/15/25 11:30 113/52 L 07/15/25 11:30 113/52 L 07/15/25 11:30 113/52 L 07/15/25 11:30 113/52 L 07/15/25 11:30 100 H 16 96 07/15/25 11:21 100 H 18 97 07/15/25 11:20 92/55 L 07/15/25 11:20 92/55 L 07/15/25 11:20 92/55 L 07/15/25 11:20 92/55 L 07/15/25 11:20 92/55 L 07/15/25 11:18 98 H 16 93 07/15/25 11:18 97 H 17 105/50 L 91 07/15/25 11:15 98 H 23 95 07/15/25 11:10 105/50 L 07/15/25 11:10 105/50 L 07/15/25 11:10 105/50 L 07/15/25 11:10 105/50 L 07/15/25 11:10 105/50 L 07/15/25 11:09 100 H 22 95 07/15/25 11:04 07/15/25 11:00 96/55 L 07/15/25 11:00 96/55 L 07/15/25 11:00 96/55 L 07/15/25 11:00 96/55 L 07/15/25 11:00 96/55 L 07/15/25 11:00 36.5 C 07/15/25 11:00 96/55 L 07/15/25 11:00 98 H 23 95 07/15/25 10:59 07/15/25 10:51 100 H 26 H 96 07/15/25 10:50 97/54 L 07/15/25 10:50 97/54 L 07/15/25 10:50 97/54 L 07/15/25 10:48 100 H 26 H 95 07/15/25 10:42 101 H 23 96 07/15/25 10:33 103 H 25 H 96 07/15/25 10:31 85/55 L 07/15/25 10:31 85/55 L 07/15/25 10:31 85/55 L 07/15/25 10:31 85/55 L 07/15/25 10:31 85/55 L 07/15/25 10:30 102 H 10 L 95 07/15/25 10:10 109/64 07/15/25 10:10 109/64 07/15/25 10:09 105 H 26 H 94 07/15/25 10:05 109/62 07/15/25 10:05 109/62 07/15/25 10:05 109/62 07/15/25 10:05 109/62 07/15/25 10:05 109/62 07/15/25 10:03 103 H 38 H 07/15/25 10:00 100 H 26 H 07/15/25 10:00 116/64 07/15/25 10:00 116/64 07/15/25 10:00 116/64 07/15/25 10:00 116/64 07/15/25 10:00 116/64 07/15/25 09:56 98/68 L 07/15/25 09:56 98/68 L 07/15/25 09:56 98/68 L 07/15/25 09:56 98/68 L 07/15/25 09:54 102 H 25 H 07/15/25 09:54 36.7 C 104 H 22 116/64 98 07/15/25 09:50 117/75 07/15/25 09:50 117/75 07/15/25 09:50 117/75 07/15/25 09:50 117/75 07/15/25 09:50 117/75 07/15/25 09:48 107 H 23 07/15/25 09:45 103 H 19 07/15/25 09:45 124/91 07/15/25 09:45 124/91 07/15/25 09:45 124/91 07/15/25 09:45 124/91 07/15/25 09:45 124/91 07/15/25 09:40 114/66 07/15/25 09:40 114/66 07/15/25 09:40 114/66 07/15/25 09:40 114/66 07/15/25 09:40 114/66 07/15/25 09:39 101 H 26 H 07/15/25 09:39 114/70 07/15/25 09:39 37.1 C 102 H 20 114/66 07/15/25 09:37 87/64 L 07/15/25 09:36 103 H 24 07/15/25 09:31 120/65 07/15/25 09:31 120/65 07/15/25 09:31 120/65 07/15/25 09:24 36.9 C 102 H 30 H 113/72 96 07/15/25 08:36 103 H 07/15/25 06:58 108 H 17 99 07/15/25 06:52 36.6 C 108 H 17 114/59 L 99 O2 Del Method O2 Del Method 07/15/25 13:26 Room Air 07/15/25 13:16 Room Air 07/15/25 13:06 Room Air 07/15/25 12:56 Room Air 07/15/25 12:15 07/15/25 12:10 07/15/25 12:10 07/15/25 12:10 07/15/25 12:10 07/15/25 12:10 07/15/25 12:09 07/15/25 12:08 07/15/25 12:00 07/15/25 12:00 07/15/25 12:00 07/15/25 12:00 07/15/25 12:00 07/15/25 12:00 07/15/25 11:54 07/15/25 11:50 07/15/25 11:50 07/15/25 11:50 07/15/25 11:50 07/15/25 11:50 07/15/25 11:50 07/15/25 11:48 07/15/25 11:45 07/15/25 11:40 07/15/25 11:40 07/15/25 11:40 07/15/25 11:40 07/15/25 11:40 07/15/25 11:39 07/15/25 11:30 07/15/25 11:30 07/15/25 11:30 07/15/25 11:30 07/15/25 11:30 07/15/25 11:30 07/15/25 11:21 07/15/25 11:20 07/15/25 11:20 07/15/25 11:20 07/15/25 11:20 07/15/25 11:20 07/15/25 11:18 07/15/25 11:18 07/15/25 11:15 07/15/25 11:10 07/15/25 11:10 07/15/25 11:10 07/15/25 11:10 07/15/25 11:10 07/15/25 11:09 07/15/25 11:04 Room Air 07/15/25 11:00 07/15/25 11:00 07/15/25 11:00 07/15/25 11:00 07/15/25 11:00 07/15/25 11:00 07/15/25 11:00 07/15/25 11:00 07/15/25 10:59 Room Air 07/15/25 10:51 07/15/25 10:50 07/15/25 10:50 07/15/25 10:50 07/15/25 10:48 07/15/25 10:42 07/15/25 10:33 07/15/25 10:31 07/15/25 10:31 07/15/25 10:31 07/15/25 10:31 07/15/25 10:31 07/15/25 10:30 07/15/25 10:10 07/15/25 10:10 07/15/25 10:09 07/15/25 10:05 07/15/25 10:05 07/15/25 10:05 07/15/25 10:05 07/15/25 10:05 07/15/25 10:03 07/15/25 10:00 07/15/25 10:00 07/15/25 10:00 07/15/25 10:00 07/15/25 10:00 07/15/25 10:00 07/15/25 09:56 07/15/25 09:56 07/15/25 09:56 07/15/25 09:56 07/15/25 09:54 07/15/25 09:54 07/15/25 09:50 07/15/25 09:50 07/15/25 09:50 07/15/25 09:50 07/15/25 09:50 07/15/25 09:48 07/15/25 09:45 07/15/25 09:45 07/15/25 09:45 07/15/25 09:45 07/15/25 09:45 07/15/25 09:45 07/15/25 09:40 07/15/25 09:40 07/15/25 09:40 07/15/25 09:40 07/15/25 09:40 07/15/25 09:39 07/15/25 09:39 07/15/25 09:39 07/15/25 09:37 07/15/25 09:36 07/15/25 09:31 07/15/25 09:31 07/15/25 09:31 07/15/25 09:24 07/15/25 08:36 07/15/25 06:58 Room Air 07/15/25 06:52 Room Air Laboratory Results 07/15/25 08:31 Aerobic Blood Culture - Pending Blood Anaerobic Blood Culture - Pending 07/15/25 08:31 Aerobic Blood Culture - Pending Blood Anaerobic Blood Culture - Pending 07/15/25 07/15/25 07/15/25 11:02 11:00 10:58 WBC RBC Hgb POC Hgb Hct POC Hct MCV MCH MCHC RDW Std Deviation RDW Coeff of Court Plt Count MPV Immature Gran % (Auto) Neut % (Auto) Lymph % (Auto) Saline % (Auto) Eos % (Auto) Baso % (Auto) Neut # (Auto) Lymph # (Auto) Saline # (Auto) Eos # (Auto) Baso # (Auto) Immature Gran # (Auto) PT INR APTT PTT Ratio POC Sodium Sodium 135 L POC Potassium Potassium 5.5 H POC Chloride Chloride 108 H Carbon Dioxide 16 L POC Total CO2 Anion Gap 11 POC Anion Gap POC BUN BUN 35 H Creatinine 1.15 POC Creatinine Est Cr Clr Drug Dosing 72.1 eGFR 71.07 BUN/Creatinine Ratio 30.4 H Glucose 205 H POC Glucose 204 H POC Glucose (other) Lactate 5.8 H* Calcium 9.3 POC Ioniz Calcium Choco Magnesium Total Bilirubin AST ALT Alkaline Phosphatase Troponin I High Sens Total Protein Albumin Globulin Albumin/Globulin Ratio Lipase Procalcitonin Nasal Screen MRSA (PCR) Negative Blood Type Blood Type Recheck Antibody Screen Crossmatch 07/15/25 07/15/25 07/15/25 09:52 09:35 09:28 WBC RBC Hgb POC Hgb Hct POC Hct MCV MCH MCHC RDW Std Deviation RDW Coeff of Court Plt Count MPV Immature Gran % (Auto) Neut % (Auto) Lymph % (Auto) Saline % (Auto) Eos % (Auto) Baso % (Auto) Neut # (Auto) Lymph # (Auto) Saline # (Auto) Eos # (Auto) Baso # (Auto) Immature Gran # (Auto) PT INR APTT PTT Ratio POC Sodium Sodium POC Potassium Potassium POC Chloride Chloride Carbon Dioxide POC Total CO2 Anion Gap POC Anion Gap POC BUN BUN Creatinine POC Creatinine Est Cr Clr Drug Dosing eGFR BUN/Creatinine Ratio Glucose POC Glucose 177 H POC Glucose (other) Lactate 6.8 H* Calcium POC Ioniz Calcium Choco Magnesium Total Bilirubin AST ALT Alkaline Phosphatase Troponin I High Sens Total Protein Albumin Globulin Albumin/Globulin Ratio Lipase Procalcitonin Nasal Screen MRSA (PCR) Blood Type Blood Type Recheck O Positive Antibody Screen Crossmatch 07/15/25 07/15/25 07/15/25 08:31 07:38 07:36 WBC RBC Hgb 9.8 L POC Hgb Hct 28.0 L POC Hct MCV MCH MCHC RDW Std Deviation RDW Coeff of Court Plt Count MPV Immature Gran % (Auto) Neut % (Auto) Lymph % (Auto) Saline % (Auto) Eos % (Auto) Baso % (Auto) Neut # (Auto) Lymph # (Auto) Saline # (Auto) Eos # (Auto) Baso # (Auto) Immature Gran # (Auto) PT INR APTT PTT Ratio POC Sodium Sodium 134 L POC Potassium Potassium 6.4 H* POC Chloride Chloride 107 Carbon Dioxide 17 L POC Total CO2 Anion Gap 10 POC Anion Gap POC BUN BUN 35 H Creatinine 1.15 POC Creatinine Est Cr Clr Drug Dosing 73.9 eGFR 71.07 BUN/Creatinine Ratio 30.4 H Glucose 174 H POC Glucose POC Glucose (other) Lactate 6.7 H* 7.1 H* Calcium 9.4 POC Ioniz Calcium Choco Magnesium Total Bilirubin AST ALT Alkaline Phosphatase Troponin I High Sens Total Protein Albumin Globulin Albumin/Globulin Ratio Lipase Procalcitonin 0.09 Nasal Screen MRSA (PCR) Blood Type O Positive Blood Type Recheck Antibody Screen NEGATIVE Crossmatch See Detail 07/15/25 07/15/25 07:01 06:30 WBC 8.68 RBC 3.37 L Hgb 11.1 L POC Hgb 10.5 L Hct 32.3 L POC Hct 31 L MCV 95.8 MCH 32.9 MCHC 34.4 RDW Std Deviation 51.[address] Coeff of [address] 14.7 H Plt Count 138 MPV 10.6 Immature Gran % (Auto) 0.5 Neut % (Auto) 76.8 Lymph % (Auto) 16.2 Saline % (Auto) 5.3 Eos % (Auto) 0.7 Baso % (Auto) 0.5 Neut # (Auto) 6.67 H Lymph # (Auto) 1.41 Saline # (Auto) 0.46 Eos # (Auto) 0.06 Baso # (Auto) 0.04 Immature Gran # (Auto) 0.04 PT 13.0 H INR 1.2 H APTT 23 PTT Ratio 0.8 POC Sodium 137 Sodium 137 POC Potassium 5.8 H Potassium 5.9 H POC Chloride 109 Chloride 106 Carbon Dioxide 17 L POC Total CO2 17 L Anion Gap 14 H POC Anion Gap 18.0 POC BUN 33 H BUN 34 H Creatinine 1.23 POC Creatinine 1.3 Est Cr Clr Drug Dosing 69.1 eGFR 65.56 BUN/Creatinine Ratio 27.6 H Glucose 183 H POC Glucose POC Glucose (other) 175 H Lactate Calcium 10.6 H POC Ioniz Calcium Choco 1.30 Magnesium 1.8 Total Bilirubin 1.7 H AST 50 H ALT 55 H Alkaline Phosphatase 97 Troponin I High Sens 30.9 H Total Protein 6.9 Albumin 4.0 Globulin 2.9 Albumin/Globulin Ratio 1.4 Lipase 18 Procalcitonin Nasal Screen MRSA (PCR) Blood Type Blood Type Recheck Antibody Screen Crossmatch Diagnostic Findings Abdomen/Pelvis CT 07/15/25 06:58 CT SCAN OF THE ABDOMEN AND PELVIS WITH IV CONTRAST CLINICAL HISTORY: Epigastric pain. Coffee-ground emesis. COMPARISON STUDY: Abdominal ultrasound November 05, 2023. TECHNIQUE: Following the IV administration of 94 cc of Optiray 320, CT scan of the abdomen and pelvis is performed from the lung bases to the proximal femora. Images are reviewed in the axial, sagittal, and coronal planes. IV contrast was administered without complication. A dose lowering technique was utilized adhering to the principles of ALARA. FINDINGS: Please note that the chest CT will be reported separately. There is moderate elevation of the right hemidiaphragm. No pneumatosis, free air or portal venous gas is present. There is probable hepatic steatosis. In addition, there is mild lobular contour of the liver surface with enlargement of the caudate lobe and lateral segment consistent with cirrhosis. No hepatic lesions are identified on the venous phase exam. Spleen is mildly enlarged. There are multiple small abdominal and pelvic varices, including paraesophageal varices. Recanalized periumbilical vein is noted. There is no ascites. Gallbladder wall thickening is a nonspecific finding in the setting of cirrhosis. The gallbladder is not distended. The findings do not suggest acute cholecystitis. Adrenal glands, kidneys and pancreas are unremarkable. There is no biliary or pancreatic ductal dilatation. No hydronephrosis. Prominent mesenteric lymph nodes are likely benign. There is mild circumferential wall thickening of the ascending colon. No evidence for a bowel obstruction. Normal appendix. Apparent jejunal wall thickening is probably related to underdistention. The main, left and right portal veins are patent. IMPRESSION: 1. Cirrhotic liver with probable hepatic steatosis. Mild splenomegaly and varices formation indicative of portal hypertension. No ascites. 2. Wall thickening of the ascending colon. This is likely related to portal hype rtension although a nonspecific colitis could appear similar. 3. No bowel obstruction. Normal appendix. ACT 112: Negative or not required by law. Electronically signed by: Jose Dominique M.D. 07/15/2025 8:[address] 07/15/25 06:[address] WITH CONTRAST CT DOSE: 2510.54 mGy.cm HISTORY: epigastric abd pain, coffee ground emesis TECHNIQUE: Multiaxial CT images of the chest were performed following the IV administration of 90 cc of Optiray. A dose lowering technique was utilized adhering to the principles of ALARA. COMPARISON STUDY: 02/28/2020 chest x-ray FINDINGS: There is mildly progressive mild elevation of the right hemidiaphragm. There is mild atelectasis at the right lung base. No other pulmonary consolidation or pleural effusion seen. No significant pulmonary nodule. No enlarged adenopathy. No pericardial effusion. There are diffuse coronary artery calcifications. No acute osseous finding seen. IMPRESSION: No acute findings seen. ACT 112: Negative or not required by law. Electronically signed by: Domo Rowland M.D. 07/15/2025 8:30 AM Medications Administered Home Medications Medication Instructions Recorded Confirmed Last Taken aspirin 81 mg tablet,delayed 81 mg PO QAM 05/31/19 07/15/25 11/19/23 release blood-glucose sensor (Dexcom G7 #1 ea 11/06/23 06/06/25 Unknown Sensor device) blood-glucose,spinner hand,cont #1 ea 11/06/23 06/06/25 Unknown (Dexcom G7 Disc Recordist) pantoprazole 40 mg tablet,delayed 40 mg PO DAILY #30 tabs 11/28/23 07/15/25 Unknown release glipizide 5 mg tablet 5 mg PO DAILY #90 tabs 09/29/24 07/15/25 Unknown metoprolol succinate 25 mg 25 mg PO QAM #90 tabs 09/29/24 07/15/25 Unknown tablet,extended release 24 hr levothyroxine 150 mcg tablet 150 mcg PO UD #90 tabs 03/02/25 07/15/25 Unknown flash glucose sensor (FreeStyle #2 ea 03/07/25 06/06/25 Unknown Russell 2 Sensor kit) blood-glucose sensor (FreeStyle #1 ea 03/23/25 06/06/25 Unknown Russell 3 Plus Sensor device) atorvastatin 80 mg tablet 80 mg PO HS #90 tabs 04/22/25 07/15/25 Unknown metformin 1,000 mg tablet 1,000 mg PO BID #180 tabs 06/09/25 07/15/25 Unknown tirzepatide 12.5 mg/0.5 mL 12.5 mg (0.5 mL) subcut Q7D #6 mL 06/09/25 07/15/25 Unknown subcutaneous pen injector allopurinol 300 mg tablet 300 mg PO QAM #90 tabs 07/11/25 07/15/25 Unknown meloxicam 7.5 mg tablet 7.5 mg PO DAILY PRN PAIN 07/15/25 07/15/25 Unknown Active Medications Generic Name Dose Route Start Last Admin Trade Name Freq PRN Reason Stop Dose Admin Pantoprazole Sodium 40 mg/ 100 mls @ 20 mls/hr 07/15/25 07:15 07/15/25 13:08 Dextrose IV 08/14/25 07:14 8 mg/hr Q5H PRETTY 20 mls/hr Administration 8 MG/HR Octreotide Acetate 500 mcg/ 100.5 mls @ 10.05 mls/hr 07/15/25 09:15 07/15/25 10:00 Sodium Chloride IV 08/14/25 09:14 50 mcg/hr .Q10H PRETTY 10.1 mls/hr Administration 50 MCG/HR Insulin Aspart 0 units 07/15/25 11:30 07/15/25 12:39 Insulin Aspart Per Unit Charge SC 08/14/25 11:29 Not Given ACHS [facility] Miscellaneous 1 each 07/15/25 11:30 07/15/25 12:39 Icu Protocol For Hyperglycemia N/A 07/17/25 11:29 Not Given ACHS PRETTY Coding Level of Care Code 37919 CRITICAL CARE 1ST 30-74M Diagnoses Hyperkalemia E87.5 Liver cirrhosis K74.60 Lactic acidosis E87.20 Coffee ground emesis K92.0 Type 2 diabetes mellitus with obesity E11.9; E66.9 UGI bleed K92.2 Esophageal varices I85.00 Portal hypertensive gastropathy K76.6; K31.89 Time Spent (min) 45
--- NOTE | 2025-07-15 14:25 | GI REPORT ---
[facility] Patient: LARUIE HANKS : 1960 Sex at : Male Age: 64 Years Procedure: Upper GI endoscopy Date: 07/15/2025 Attending Physician: Dangelo Soto MD Referring MD: Kingsley Reese MD Indications: - Melena - Suspected upper gastrointestinal bleeding - Anemia Medications: - Monitored Anesthesia Care Complications: - No immediate complications. Estimated Blood Loss: - Estimated blood loss: None. Procedure: - Prior to the procedure, a History and Physical was performed, and patient medications and allergies were reviewed. The patient's tolerance of previous anesthesia was also reviewed. The risks and benefits of the procedure and the sedation options and risks were discussed with the patient. All questions were answered, and informed consent was obtained. Prior Anticoagulants: The patient has taken no anticoagulant or antiplatelet agents. ASA Grade Assessment: III - A patient with severe systemic disease. After reviewing the risks and benefits, the patient was deemed in satisfactory condition to undergo the procedure. - The egd scope was introduced through the mouth and advanced to the third part of the duodenum. - The upper GI endoscopy was accomplished without difficulty. - The patient tolerated the procedure well. Findings: - Three columns of grade III varices with stigmata of recent bleeding were found in the lower third of the esophagus. They were medium in size. Red jaguar signs were present. Three bands were successfully placed with complete eradication, resulting in deflation of varices. There was no bleeding during nor at the end of the procedure. - Moderate portal hypertensive gastropathy was found in the entire examined stomach. - The examined duodenum was normal. - Hematin (altered blood/oricec-xxegsx-hdqz material) was found in the gastric body. Impression: - Grade III esophageal varices with stigmata of recent bleeding. Completely eradicated. Banded. - Portal hypertensive gastropathy. - Normal examined duodenum. - Hematin (altered blood/lnezsa-exjexm-rydr material) in the gastric body. - No specimens collected. Recommendation: - Discharge patient to home (ambulatory). - Resume previous diet. - Continue present medications. - Await pathology results. - Return to primary care physician as previously scheduled. - Patient has a contact number available for emergencies. The signs and symptoms of potential delayed complications were discussed with the patient. Return to normal activities tomorrow. Written discharge instructions were provided to the patient. - Octreotide drip x 48 hours, ppi bid, ceftriaxone iv, and liquids tonight. watch in icu. Procedure Code(s): - 23654, Esophagogastroduodenoscopy, flexible, transoral; with band ligation of esophageal/gastric varices Diagnosis Code(s): - K92.1, Melena (includes Hematochezia) - D64.9, Anemia, unspecified - I85.01, Esophageal varices with bleeding - K76.6, Portal hypertension - K31.89, Other diseases of stomach and duodenum - K92.2, Gastrointestinal hemorrhage, unspecified CPT(R) - 202 copyright [employer]. All Rights Reserved. The CPT codes, CCI edits and ICD codes generated are intended as suggestions and were generated based on input data. These codes are preliminary and upon wire dropper review may be revised to meet current compliance and payer requirements. The provider is responsible for the final determination of appropriate codes, and modifiers. Dangelo Soto MD This document has been electronically signed. Note Initiated:07/15/2025 Note Completed:07/15/2025 2:25 PM \\[email or web address]\Provation\Results\[email or web address]\[id number]
[2025-07-15 15:22] LABS: Hematocrit (blood only) 29.9 % (42.0-52.0); Hemoglobin 10.6 g/dL (14.0-18.0)
[2025-07-15 15:38] LABS: Anion Gap 5.0 (3-11); Blood Urea Nitrogen 36.0 mg/dl (6-23); Calcium 9.2 mg/dl (8.6-10.3); Carbon Dioxide 24.0 mmol/L (21-32); Chloride 104.0 mmol/L (98-107); Creatinine Clr Calc Pharmacy 72.8 ml/min; Glucose 286.0 mg/dl (70-99(Fasting)); Potassium 5.2 mmol/L (3.5-5.1); Sodium 133.0 mmol/L (136-145)
[2025-07-15] MEDS ORDERED: PHARMACY GLYCEMIC MGMT CONSULT PRN (15:39)
[2025-07-15 20:02] LABS: Appearance Urine Clear (Clear); Glucose Urine UA Negative (Negative)
[2025-07-15] MEDS: PANTOprazole 40 MG/10 ML SYR IV SCH (21:05)
[2025-07-15] MEDS: LANTUS PER UNIT CHARGE SQ SCH (21:25)
[2025-07-15 21:28] LABS: Hematocrit (blood only) 30.1 % (42.0-52.0); Hemoglobin 10.8 g/dL (14.0-18.0)
[2025-07-15 21:38] LABS: Anion Gap 4.0 (3-11); Blood Urea Nitrogen 33.0 mg/dl (6-23); Calcium 9.0 mg/dl (8.6-10.3); Carbon Dioxide 27.0 mmol/L (21-32); Chloride 105.0 mmol/L (98-107); Creatinine Clr Calc Pharmacy 75.4 ml/min; Glucose 111.0 mg/dl (70-99(Fasting)); Potassium 4.4 mmol/L (3.5-5.1); Sodium 136.0 mmol/L (136-145)
[2025-07-15] MEDS: MAGNESIUM SULFATE / D5W 1 GM/100 ML BAG IV SCH (22:42)
[2025-07-16 03:30] LABS: Hematocrit (blood only) 29.2 % (42.0-52.0); Hemoglobin 10.3 g/dL (14.0-18.0); Immature Granulocytes # (auto) 0.02 K/uL (0.01-0.20); Immature Granulocytes % (auto) 0.3 %; Mean Corpuscular Hemoglobin 32.2 pg (25.0-34.0); Mean Corpuscular Volume 91.3 fL (80.0-100.0); Platelet Count 73 K/uL (130-400); RDW Standard Deviation 51.5 fL (36.4-46.3); Red Blood Count 3.20 M/uL (4.70-6.10); White Blood Count 6.39 K/ul (4.8-10.8)
[2025-07-16 04:04] LABS: Anion Gap 6.0 (3-11); Blood Urea Nitrogen 34.0 mg/dl (6-23); Calcium 8.8 mg/dl (8.6-10.3); Carbon Dioxide 27.0 mmol/L (21-32); Chloride 103.0 mmol/L (98-107); Creatinine Clr Calc Pharmacy 67.5 ml/min; Glucose 98.0 mg/dl (70-99(Fasting)); Potassium 4.3 mmol/L (3.5-5.1); Sodium 136.0 mmol/L (136-145)
[2025-07-16 04:45] LABS: Alanine Aminotransferase 43.0 U/L (7-52); Albumin Globulin Ratio 1.3 (0.9-2); Albumin Level 3.1 gm/dl (3.4-5.0); Alkaline Phosphatase 73.0 U/L (34-104); Bilirubin,Total 2.1 mg/dl (0.2-1.0); Globulin 2.3 gm/dl (2.5-4.0); Magnesium 2.2 mg/dl (1.7-2.4); Total Protein 5.4 gm/dl (6.0-8.3)
--- NOTE | 2025-07-16 08:12 | Electrocardiogram Report ---
Test Reason : Blood Pressure : */* mmHG Vent. Rate : 100 BPM Atrial Rate : 100 BPM P-R Int : 152 ms QRS Dur : 102 ms QT Int : 356 ms P-R-T Axes : 37 -51 72 degrees QTcB Int : 459 ms Normal sinus rhythm Left anterior fascicular block Possible Anterolateral infarct , age undetermined Abnormal ECG When compared with ECG of 17-Aug-2016 07:02, T-wave inversion in Inferolateral leads has resolved QRS axis has shifted left Poor R-wave progression is now Present Confirmed by Freddie Mock ([id number]) on 07/16/2025 8:12:25 AM Referred By: REFERRED SELF Confirmed By: Frdedie Mock
--- NOTE | 2025-07-16 08:27 | Gastroenterology Progress Note ---
Date of Service July 16, 2025 Assessment & Plan (1) Esophageal varices: Plan: Bleeding esophageal varices. 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 Check iron and hepatitis screens. Long-term management obliteration of esophageal varices with potential follow-up EGD in 4 weeks. Abstain from alcohol. Improved hemoglobin control aiming for hemoglobin A1c at or below 7. Continue octreotide for 48 hours. Advance diet to fulls with soft diet tomorrow if tolerates. (2) Portal hypertensive gastropathy: (3) Liver cirrhosis: Plan: Reviewed liver cirrhosis with patient in detail. Underlying etiology probably MASH based on his description though should abstain from any alcohol going forward. Admission and Anticipated Discharge Date Admission Date: July 15, 2025 Subjective Variceal bleed Patient day 1 post EGD and banding of esophageal varices. Clinically stable no clinical evidence of gastrointestinal bleeding. No hematemesis no melena. Patient stays well denies chest pain or odynophagia. Wants his diet advanced. Hemoglobin stable. Platelets are now in the 70s. This appears more of his baseline than the 134 in admission. Minimal increase in his INR. Mild increased liver enzymes. Patient is on ceftriaxone for bacteremia prevention. There is no ascites. CT scan consistent with cirrhosis and portal hypertension. Spleen is not clinically enlarged. Patient denies confusion. States he only drinks occasionally. He is diabetic for greater than 10 years. Tells me his hemoglobin A1c's tend to run high in the tens. Past history of fatty liver. This is probably MASH. However with cirrhosis complete alcohol abstaining is recommended. Review of Systems Review of Systems: Denies confusion anxiety No chest pain no shortness of breath no swallowing difficulties. GI negative. Physical Exam Physical Exam: Pleasant 64-year-old gentleman no acute distress Chest and heart sounds normal Abdomen benign. Spleen not palpably enlarged. Results & Data Results & Data Vital Signs (Past 12 Hours) Vital Signs Temp Pulse Resp BP Pulse Ox O2 Del Method 07/16/25 06:00 73 14 107/65 95 Room Air 07/16/25 05:00 67 14 106/61 95 Room Air 07/16/25 04:00 60 12 104/63 95 Room Air 07/16/25 03:00 80 14 101/53 L 96 Room Air 07/16/25 02:00 68 14 99/60 L 95 Room Air 07/16/25 01:00 70 14 107/68 94 Room Air 07/16/25 00:45 70 07/16/25 00:00 36.6 C 71 14 103/64 94 Room Air 07/15/25 22:30 79 12 107/61 94 Room Air 07/15/25 22:00 81 12 133/75 98 Room Air 07/15/25 21:00 79 12 109/68 95 Room Air PG Care Time/CCT Total # of Minutes Spent Total Time Spent with Patient: Total time spent is greater than 50% in coordination of care (as documented) at patient's floor/unit and/or counseling patient: Coding Level of Care Code 97115 SUB INP/OBS CARE 235MIN Diagnoses Esophageal varices I85.00 Portal hypertensive gastropathy K76.6; K31.89 Liver cirrhosis K74.60
--- NOTE | 2025-07-16 08:30 | Hospitalist Progress Note ---
Date of Service July 16, 2025 Assessment & Plan (1) Metabolic acidosis with normal anion gap and bicarbonate losses: (2) Coffee ground emesis: (3) Type 2 diabetes mellitus with obesity: (4) Lactic acidosis: (5) Liver cirrhosis: (6) Obstructive hypertrophic cardiomyopathy: (7) Obstructive sleep apnea: (8) Hyperkalemia: (9) Acute blood loss anemia: (10) Portal hypertensive gastropathy: (11) Esophageal varices: (12) UGI bleed: Plan 64 year old male with history of gastritis and B12 deficiency presents to the ER with melena and hemoptysis #Acute gastrointestinal bleed / acute blood loss anemia / esophageal variceal bleed / melena / coffee ground vomiting Secondary to esophageal varices Sop aspirin and meloxicam INR 1.2, platelets 73 - suspect secondary to liver cirrhosis Hemoglobin stable 10.3 s/p 2 units packed RBCs Continue pantoprazole 40mg IV BID, Octreotide drip for 48 hours after EGD (will stop tomorrow) and Ceftriaxone 2g IV daily Appreciate GI management - esophageal varices bleed confirmed on EGD and varices banded Stable for transfer to PCU #Liver cirrhosis on imaging Cessation from alcohol although probably more likely STEVENS related Hepatitis and iron panel ordered by GI, will also order AFP #Hyperkalemia Resolved, secondary to hemoglobin digestion #Metabolic acidosis without anion gap from bicarbonate losses from GI bleeding Resolved #Lactic acidosis Resolved #Type 2 diabetes mellitus Last took Mounjaro 1 week ago, continue to hold this Hold metformin, glipizide and Mounjaro Insulin sliding scale Lantus reduce to 5 units HS #Hypothyroidism Restart levothyroxine #Hypertrophic cardiomyopathy Severe asymmetric hypertrophy involving anteroseptum on echocardiogram in June but he reports having this all his life Consider cardiology follow up #Obstructive sleep apnea Prior diagnosis, never retested after uvulopalatopharyngoplasty in 1996 Does not wear CPAP, monitor for apneic events #Chronic gout Continue allopurinol #History of stroke 10 years ago with complete resolution of symptoms from tPA, reason for aspirin and atorvastatin Restart atorvastatin Hold aspirin in setting of GI bleed VTE Prophylaxis - SCDs Disposition - stable for downgrade to PCU Admission and Anticipated Discharge Date Admission Date: July 15, 2025 Subjective Feeling improved. No dizziness, abdominal or chest pain. No nausea or vomiting. Tolerating clears and advanced to full liquid by GI. Review of Systems Review of Systems: All systems reviewed & are unremarkable except as noted in HPI & below Physical Exam Respiratory: normal respiratory effort, lungs clear to auscultation Cardiovascular: RRR, no murmur, no edema Gastrointestinal (Abdomen): normal bowel sounds, soft, nontender, no hepatosplenomegaly Psychiatric: Orientation: alert Results & Data Results & Data Vital Signs (Past 12 Hours) Vital Signs Temp Pulse Resp BP Pulse Ox O2 Del Method 07/16/25 06:00 73 14 107/65 95 Room Air 07/16/25 05:00 67 14 106/61 95 Room Air 07/16/25 04:00 60 12 104/63 95 Room Air 07/16/25 03:00 80 14 101/53 L 96 Room Air 07/16/25 02:00 68 14 99/60 L 95 Room Air 07/16/25 01:00 70 14 107/68 94 Room Air 07/16/25 00:45 70 07/16/25 00:00 36.6 C 71 14 103/64 94 Room Air 07/15/25 22:30 79 12 107/61 94 Room Air 07/15/25 22:00 81 12 133/75 98 Room Air 07/15/25 21:00 79 12 109/68 95 Room Air PG Care Time/CCT Total # of Minutes Spent Total Time Spent with Patient: Total time spent is greater than 50% in coordination of care (as documented) at patient's floor/unit and/or counseling patient: Coding Level of Care Code 26626 SUB INP/OBS CARE 3/50MIN Diagnoses Metabolic acidosis with normal anion gap and bicarbonate losses E87.20 Coffee ground emesis K92.0 Type 2 diabetes mellitus with obesity E11.9; E66.9 Lactic acidosis E87.20 Liver cirrhosis K74.60 Obstructive hypertrophic cardiomyopathy I42.1 Obstructive sleep apnea G47.33 Hyperkalemia E87.5 Acute blood loss anemia D62 Portal hypertensive gastropathy K76.6; K31.89 Esophageal varices I85.00 UGI bleed K92.2
[2025-07-16 09:06] LABS: Hematocrit (blood only) 29.1 % (42.0-52.0); Hemoglobin 10.5 g/dL (14.0-18.0)
[2025-07-16 10:05] LABS: Anion Gap 7.0 (3-11); Blood Urea Nitrogen 30.0 mg/dl (6-23); Calcium 8.8 mg/dl (8.6-10.3); Carbon Dioxide 26.0 mmol/L (21-32); Chloride 103.0 mmol/L (98-107); Creatinine Clr Calc Pharmacy 69.8 ml/min; Glucose 174.0 mg/dl (70-99(Fasting)); Potassium 4.3 mmol/L (3.5-5.1); Sodium 136.0 mmol/L (136-145)
[2025-07-16 11:28] LABS: Hep B Surface Ag with confirm Negative (Negative)
[2025-07-16 11:33] LABS: Hep C Ab Rflx HepCQuant RNA Negative (Negative)
[2025-07-16] MEDS: cefTRIAXone SODIUM 2,000 MG/50 ML BAG IV SCH (11:34)
[2025-07-16] MEDS: ATORVASTATIN 40 MG TAB PO SCH (20:48)
[2025-07-16] MEDS: LANTUS PER UNIT CHARGE SQ SCH (20:49)
[2025-07-16] MEDS ORDERED: LANTUS PER UNIT CHARGE SQ SCH ×2 (21:00)
[2025-07-17] MEDS: LEVOTHYROXINE SODIUM 150 MCG TABLET PO SCH (06:09)
[2025-07-17 06:46] LABS: Hematocrit (blood only) 28.5 % (42.0-52.0); Hemoglobin 10.3 g/dL (14.0-18.0); Immature Granulocytes # (auto) 0.01 K/uL (0.01-0.20); Immature Granulocytes % (auto) 0.3 %; Mean Corpuscular Hemoglobin 32.8 pg (25.0-34.0); Mean Corpuscular Volume 90.8 fL (80.0-100.0); Platelet Count 66 K/uL (130-400); RDW Standard Deviation 49.5 fL (36.4-46.3); Red Blood Count 3.14 M/uL (4.70-6.10); White Blood Count 3.56 K/ul (4.8-10.8)
[2025-07-17 07:11] LABS: INR 1.2 (0.9-1.1); Prothrombin Time 12.4 Seconds (9.0-12.0)
[2025-07-17 07:29] LABS: Alanine Aminotransferase 43.0 U/L (7-52); Albumin Globulin Ratio 1.3 (0.9-2); Albumin Level 3.2 gm/dl (3.4-5.0); Alkaline Phosphatase 76.0 U/L (34-104); Anion Gap 6.0 (3-11); Bilirubin,Total 2.0 mg/dl (0.2-1.0); Blood Urea Nitrogen 22.0 mg/dl (6-23); Calcium 8.6 mg/dl (8.6-10.3); Carbon Dioxide 26.0 mmol/L (21-32); Chloride 105.0 mmol/L (98-107); Creatinine Clr Calc Pharmacy 74.1 ml/min; Ferritin 111.9 ng/ml (8-388); Globulin 2.4 gm/dl (2.5-4.0); Glucose 137.0 mg/dl (70-99(Fasting)); Iron 27.0 mcg/dl (35-175); Potassium 4.2 mmol/L (3.5-5.1); Sodium 137.0 mmol/L (136-145); Total Iron Binding Cap Calc 346.0 mcg/dl (250-450); Total Protein 5.6 gm/dl (6.0-8.3); Transferrin 247.0 mg/dl (200-360); Transferrin (FE) Percent Satur 8.0 % (20-50)
[2025-07-17] MEDS: glipiZIDE 5 MG TAB PO SCH (08:34)
[2025-07-17] MEDS: METOPROLOL SUCC 25MG EXT REL TAB PO SCH (08:34)
--- NOTE | 2025-07-17 10:35 | Hospitalist Progress Note ---
Date of Service July 17, 2025 Assessment & Plan (1) Metabolic acidosis with normal anion gap and bicarbonate losses: (2) Coffee ground emesis: (3) Type 2 diabetes mellitus with obesity: (4) Lactic acidosis: (5) Liver cirrhosis: (6) Obstructive hypertrophic cardiomyopathy: (7) Obstructive sleep apnea: (8) Hyperkalemia: (9) Acute blood loss anemia: (10) Portal hypertensive gastropathy: (11) Esophageal varices: (12) UGI bleed: Plan 64 year old male with history of gastritis and B12 deficiency presents to the ER with melena and hemoptysis #Acute gastrointestinal bleed / acute blood loss anemia / esophageal variceal bleed / melena / coffee ground vomiting Secondary to esophageal varices (new diagnosis with liver cirrhosis) Stopped aspirin and meloxicam. Likely restart aspirin as outpatient given low platelets therefore too early to restart as inpatient INR 1.2, platelets 66 - suspect secondary to liver cirrhosis Hemoglobin stable 10.3 s/p 2 units packed RBCs Continue pantoprazole 40mg IV BID, Octreotide drip for 48 hours after EGD (will stop tomorrow) and Ceftriaxone 2g IV daily Appreciate GI management - esophageal varices bleed confirmed on EGD and varices banded On metoprolol due to HOCM but given esophageal varices a non-selective BB might be better but will discuss this with cardiology tomorrow #Liver cirrhosis Cessation from alcohol although probably more likely STEVENS related MELD 3.0 13, 98.4% 90 day survival although this is likely high due to recent GI bleed Hepatitis Bs Ag negative (immunity from vaccination), Hep C negative Iron studies not suggestive of hemochromatosis AFP pending #Hyperkalemia Resolved, secondary to hemoglobin digestion #Metabolic acidosis without anion gap from bicarbonate losses from GI bleeding Resolved #Lactic acidosis Resolved #Type 2 diabetes mellitus Last took Mounjaro 1 week ago, can restart this on discharge Stop Lantus, restart glipizide and metformin Use Novolog for correction only #Hypothyroidism Restart levothyroxine #Hypertrophic cardiomyopathy Severe asymmetric hypertrophy involving anteroseptum on echocardiogram in June but he reports having this all his life Restarted on metoprolol today Consider cardiology follow up #Obstructive sleep apnea Prior diagnosis, never retested after uvulopalatopharyngoplasty in 1996 Does not wear CPAP, monitor for apneic events #Chronic gout Continue allopurinol #History of stroke 10 years ago with complete resolution of symptoms from tPA, reason for aspirin and atorvastatin Continue atorvastatin Hold aspirin in setting of GI bleed VTE Prophylaxis - SCDs, encourage ambulation Disposition - continue on PCU, risk of rebleed Admission and Anticipated Discharge Date Admission Date: July 15, 2025 Subjective Mild nausea last night but resolved with eating. No dizziness, abdominal, chest pain or vomiting. Tolerating full liquid and advanced to regular diet by GI. Physical Exam Respiratory: normal respiratory effort, lungs clear to auscultation Cardiovascular: RRR, no murmur, no edema Gastrointestinal (Abdomen): Inspection/Auscultation: abdomen normal to inspection; abdomen not distended Percussion/Palpation: abdomen soft; abdomen nontender Results & Data Results & Data Vital Signs (Past 12 Hours) Vital Signs Temp Pulse Pulse Resp BP Pulse Ox O2 Del Method 07/17/25 07:14 36.4 C L 72 20 120/62 95 Room Air 07/17/25 03:16 36.5 C 73 18 109/55 L 98 Room Air 07/16/25 23:30 69 07/16/25 22:54 36.5 C 71 18 127/65 95 Room Air PG Care Time/CCT Total # of Minutes Spent Total Time Spent with Patient: Total time spent is greater than 50% in coordination of care (as documented) at patient's floor/unit and/or counseling patient: Coding Level of Care Code 75973 SUB INP/OBS CARE 2/35MIN Diagnoses Metabolic acidosis with normal anion gap and bicarbonate losses E87.20 Coffee ground emesis K92.0 Type 2 diabetes mellitus with obesity E11.9; E66.9 Lactic acidosis E87.20 Liver cirrhosis K74.60 Obstructive hypertrophic cardiomyopathy I42.1 Obstructive sleep apnea G47.33 Hyperkalemia E87.5 Acute blood loss anemia D62 Portal hypertensive gastropathy K76.6; K31.89 Esophageal varices I85.00 UGI bleed K92.2
--- NOTE | 2025-07-17 13:28 | Gastroenterology Progress Note ---
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 Diet advanced. Can stop IV PPI and octreotide tomorrow. Can also stop antibiotics tomorrow. Typically 3 days suggested. Discharge on oral Protonix 1 time daily. Repeat EGD in 3 to 4 weeks. Abstain from alcohol going forward. Try to improve hemoglobin A1c's to 7 Review of Systems Review of Systems: Feels well no acute distress No chest pain or shortness of breath GI as noted Physical Exam Physical Exam: Alert and orientated no distress. Benign abdomen. Orientated x 3. No encephalopathy. Results & Data Results & Data Vital Signs (Past 12 Hours) Vital Signs Temp Pulse Resp BP Pulse Ox O2 Del Method 07/17/25 11:00 36.4 C 71 22 110/63 95 Room Air 07/17/25 07:14 36.4 C L 72 20 120/62 95 Room Air 07/17/25 03:16 36.5 C 73 18 109/55 L 98 Room Air PG Care Time/CCT Total # of Minutes Spent Total Time Spent with Patient: Total time spent is greater than 50% in coordination of care (as documented) at patient's floor/unit and/or counseling patient: Coding Level of Care Code 16130 SUB INP/OBS CARE 09/25MIN Diagnoses Esophageal bleed, non-variceal K22.89 Liver cirrhosis secondary to STEVENS K75.81; K74.69
[2025-07-18 06:23] LABS: Hematocrit (blood only) 29.2 % (42.0-52.0); Hemoglobin 10.5 g/dL (14.0-18.0); Mean Corpuscular Hemoglobin 33.2 pg (25.0-34.0); Mean Corpuscular Volume 92.4 fL (80.0-100.0); Platelet Count 62 K/uL (130-400); RDW Standard Deviation 49.1 fL (36.4-46.3); Red Blood Count 3.16 M/uL (4.70-6.10); White Blood Count 3.70 K/ul (4.8-10.8)
[2025-07-18 06:45] LABS: Alanine Aminotransferase 42.0 U/L (7-52); Albumin Globulin Ratio 1.4 (0.9-2); Albumin Level 3.3 gm/dl (3.4-5.0); Alkaline Phosphatase 78.0 U/L (34-104); Anion Gap 5.0 (3-11); Bilirubin,Total 1.8 mg/dl (0.2-1.0); Blood Urea Nitrogen 20.0 mg/dl (6-23); Calcium 8.8 mg/dl (8.6-10.3); Carbon Dioxide 26.0 mmol/L (21-32); Chloride 107.0 mmol/L (98-107); Creatinine Clr Calc Pharmacy 70.3 ml/min; Globulin 2.4 gm/dl (2.5-4.0); Glucose 116.0 mg/dl (70-99(Fasting)); Potassium 4.5 mmol/L (3.5-5.1); Sodium 138.0 mmol/L (136-145); Total Protein 5.7 gm/dl (6.0-8.3)
[2025-07-18 07:18] VITALS: BP 118/67; RESP 20; TEMP 97.5; O2SAT 96
--- NOTE | 2025-07-18 10:18 | Discharge Summary ---
Discharge Summary Date of Service July 18, 2025 Principal Dx & Hospital Course #1 = Principal Diagnosis (1) Metabolic acidosis with normal anion gap and bicarbonate losses: (2) Coffee ground emesis: (3) Type 2 diabetes mellitus with obesity: (4) Lactic acidosis: (5) Liver cirrhosis: (6) Obstructive hypertrophic cardiomyopathy: (7) Obstructive sleep apnea: (8) Hyperkalemia: (9) Acute blood loss anemia: (10) Portal hypertensive gastropathy: (11) Esophageal varices: (12) UGI bleed: Jez Garrett is a 64 year old male admitted to [facility] from July 15 - 2024 due to acute gastrointestinal bleeding with lightheadedness and coffee ground vomiting. CT was concerning for liver cirrhosis and esophageal varices as cause of bleeding. This was treated with intravenous pantoprazole, octreotide, ceftriaxone and he urgent transfusion of 2 units packed red blood cells. He underwent esophagogastroduodenoscopy(EGD) the same day of admission which confirmed grade III esophageal varices with stigmata of recent bleeding. These were treated with esophageal banding. He should remain on daily pantoprazole on discharge as directed by gastroenterology. Avoid all alcohol and NSAIDs. To better manage his esophageal varices metoprolol was switched to carvedilol - this should be uptitrated as able to 12.5mg twice a day if no adverse effects such as low heart rate and blood pressure. He should aspirin until he follows up with his primary care provider with repeat CBC but suspect this can be restarted in 1-2 weeks if hemoglobin stable. Hgb 10.5 and platelets 62 on day of discharge. Preliminary workup for liver cirrhosis including viral hepatitis and hemochromatosis which were negative. AFP (alpha fetoprotein) tumor maker is pending on discharge. Suspect liver cirrhosis is due to non alcoholic steatohepatitis (STEVENS). He was advised on diet and exercise but may benefit from nutrition referral as an outpatient. Notes For Next Care Provider CBC in 1 week and likely can restart aspirin (for stroke prophylaxis) if hemoglobin and platelets stable Follow up AFP Follow up with gastroenterology for ongoing management of liver cirrhosis and esophageal varices. Medication Changes From Visit Hold aspirin until repeat CBC with PCP due to GI bleed Stop meloxicam due to GI bleed Metoprolol switched to carvedilol to decrease pressure of esophageal varices Admission HPI Per Admitting Provider Brannon Garrett is a 64 year old male with known gastritis on pantoprazole daily who presents to the ER with 2 days of epigastric pain with melena and today felt lightheaded with coffee ground vomiting. He denies scheduled NSAID use but uses Aleve intermittently. Meloxicam that was previously prescribed he took 4 months ago for his knee but none recently. Since coffee ground vomiting this morning he has bee dry heaving but just air coming up. No fresh blood. He had an EGD in October 2023 that showed gastritis but no esophageal varices were seen at that time. He has been seen for pancytopenia in the past and diagnosed with B12 deficiency. Planning on 6 monthly surveillance for this although notably platelets were normal today. Last B12 level was high in June. Discharge Exam Respiratory normal respiratory effort, lungs clear to auscultation Cardiovascular RRR, no murmur, no edema Gastrointestinal (Abdomen) normal bowel sounds, soft, nontender, no hepatosplenomegaly Discharge Plan Discharge Items Patient Disposition: Home - Self-Care Reason For Visit: ACUTE GI BLEED, POSSIBLE ESOPHAGEAL VARICES Discharge Diagnosis: Esophageal variceal bleed Liver cirrhosis Condition on Discharge: Fair Activity: Per Instructions section Lifting: Gradually increase as tolerated Non-emergency contact: Press Operator Assistant Call non-emergency contact if: you have any medication questions and your symptoms worsen Follow-up/Referrals: ProAnibal MD [Primary Care Provider] - 08/02/25 11:00 am (Hospital follow up is scheduled for August 02, 2025 at 11:00 am with Mabel Aguilar PA-C.) Diet: Carb Consistent or DM2 Addtl Attending Provider Instructions: You were admitted to [facility] from July 15 - 2024 due to acute gastrointestinal bleeding. CT was concerning for liver cirrhosis and esophageal varices (enlarged veins in your esophagus). This was treated with intravenous pantoprazole, octreotide, ceftriaxone and you received 2 units packed red blood cells. You underwent esophagogastroduodenoscopy(EGD) the same day of admission which confirmed grade III esophageal varices with stigmata of recent bleeding. These was treated with esophageal banding. You should remain on daily pantoprazole on discharge. Avoid alcohol and NSAIDs (all over the counter pain medication other than acetaminophen, which you should limit to 2g/day). To better manage your esophageal varices your metoprolol was switched to carvedilol - this should be uptitrated as able to 12.5mg twice a day if no adverse effects such as low heart rate and blood pressure. Please hold aspirin until you follow up with your primary care provider with repeat labs but suspect this can be restarted in 1-2 weeks. Preliminary workup for liver cirrhosis including viral hepatitis and hemochromatosis which were negative. AFP (alpha fetoprotein) tumor maker to assess risk for liver cancer is pending on discharge (this is a routine test for patients with liver cirrhosis). Suspect your liver cirrhosis is due to non alcoholic steatohepatitis (STEVENS) also known as fatty liver disease. The mainstay of treatment for this is diet and exercise. Please talk to your primary care provider about a nutrition consult. A liver cirrhosis diagnosis can feel overwhelming but you are not powerless. There is much you can do to protect your liver and improve your health. Each healthy meal, each walk, each medication taken correctly is a move in the right direction and start the healing process. Follow up with gastroenterology for ongoing management of your liver cirrhosis and esophageal varices. Pending Studies at Discharge: Yes (AFP) Stand-Alone Forms: My [facility] [employer], Smoking Cessation Medications and DC Order Prescriptions: New carvedilol 3.125 mg tablet 3.125 mg PO BID Qty: 60 0RF Rx Instructions: must administer with a meal/food Continued glipizide 5 mg tablet 5 mg PO DAILY Qty: 90 3RF (DME) FreeStyle Russell 2 Sensor Kit See Rx Instructions .Route Qty: 2 5RF Rx Instructions: As directed to check blood sugars at least every 8 hours; replace every 14 days atorvastatin 80 mg tablet 80 mg PO HS Qty: 90 3RF Rx Instructions: for cholesterol metformin 1,000 mg tablet 1,000 mg PO BID Qty: 180 3RF tirzepatide 12.5 mg/0.5 mL pen injector 12.5 mg subcut Q7D Qty: 6 0RF allopurinol 300 mg tablet 300 mg PO QAM Qty: 90 0RF (DME) Dexcom G7 Water Pollution Scientist Misc See Rx Instructions .Route Qty: 1 0RF Rx Instructions: As directed (DME) Dexcom G7 Sensor Device See Rx Instructions .Route Qty: 1 0RF Rx Instructions: As directed levothyroxine 150 mcg tablet 150 mcg PO UD Qty: 90 3RF Rx Instructions: 150 mcg orally TAKE EVERY DAY EXCEPT SUNDAYS; (DME) FreeStyle Russell 3 Plus Sensor Device See Rx Instructions .Route Qty: 1 0RF Rx Instructions: As directed Held aspirin 81 mg tablet,delayed release (DR/EC) 81 mg PO QAM Hold Instructions: Resume on 07/25/25. hold until follow up with primary care physician Discontinued metoprolol succinate 25 mg tablet extended release 24 hr 25 mg PO QAM Qty: 90 3RF meloxicam 7.5 mg tablet 7.5 mg PO DAILY PRN (Reason: PAIN) No Action pantoprazole 40 mg tablet,delayed release (DR/EC) 40 mg PO DAILY Qty: 30 5RF Discharge Orders: Discharge Order (Routine); Ordered 07/18/25 Ordered By: Kingsley Oglesby/Other Patient Handouts: Esophageal Varices, Cirrhosis of Liver Dc Admission Data Admit Date/Time: 07/15/25 09:42 Attending Provider: Kingsley Reese Admit Provider: Kingsley Reese Primary Care Provider: Anibal Barrera Other Providers: Renato Cortes; Dangelo Soto; Gilbert Nunes Other Interventions: Discharge Summary Assessment (RN) Last Done: 07/18/25 10:33 Hospital Stay Data Consultations 07/15/25 09:36 ED Decision to Admit Stat 07/15/25 10:35 Consult Delivery Rep Routine Procedures Performed Operation Date: 07/15/25 09:20 Actual Procedures p EGD Banding of Varices - Dangelo Soto MD Diagnostic Imagining Performed 07/15/25 06:58 CT abd pelvis IV con only Stat IMPRESSION: 1. Cirrhotic liver with probable hepatic steatosis. Mild splenomegaly and varices formation indicative of portal hypertension. No ascites. 2. Wall thickening of the ascending colon. This is likely related to portal hypertension although a nonspecific colitis could appear similar. 3. No bowel obstruction. Normal appendix. CT chest diagnostic w con Stat IMPRESSION: No acute findings seen. Pending Results Patient Have Any Pending Studies at Discharge: Yes (AFP) Discharge Instructions Given to Patient (Per Discharging Provider) You were admitted to [facility] from July 15 - 2024 due to acute gastrointestinal bleeding. CT was concerning for liver cirrhosis and esophageal varices (enlarged veins in your esophagus). This was treated with intravenous pantoprazole, octreotide, ceftriaxone and you received 2 units packed red blood cells. You underwent esophagogastroduodenoscopy(EGD) the same day of admission which confirmed grade III esophageal varices with stigmata of recent bleeding. These was treated with esophageal banding. You should remain on daily pantoprazole on discharge. Avoid alcohol and NSAIDs (all over the counter pain medication other than acetaminophen, which you should limit to 2g/day). To better manage your esophageal varices your metoprolol was switched to carvedilol - this should be uptitrated as able to 12.5mg twice a day if no adverse effects such as low heart rate and blood pressure. Please hold aspirin until you follow up with your primary care provider with repeat labs but suspect this can be restarted in 1-2 weeks. Preliminary workup for liver cirrhosis including viral hepatitis and hemochromatosis which were negative. AFP (alpha fetoprotein) tumor maker to assess risk for liver cancer is pending on discharge (this is a routine test for patients with liver cirrhosis). Suspect your liver cirrhosis is due to non alcoholic steatohepatitis (STEVENS) also known as fatty liver disease. The mainstay of treatment for this is diet and exercise. Please talk to your primary care provider about a nutrition consult. A liver cirrhosis diagnosis can feel overwhelming but you are not powerless. There is much you can do to protect your liver and improve your health. Each healthy meal, each walk, each medication taken correctly is a move in the right direction and start the healing process. Follow up with gastroenterology for ongoing management of your liver cirrhosis and esophageal varices. Total Time Total Time Spent Total Time Spent (In Minutes): 40 Coding Level of Care Code 39724 INP/OBS DISCH >30 MIN Diagnoses Metabolic acidosis with normal anion gap and bicarbonate losses E87.20 Coffee ground emesis K92.0 Type 2 diabetes mellitus with obesity E11.9; E66.9 Lactic acidosis E87.20 Liver cirrhosis K74.60 Obstructive hypertrophic cardiomyopathy I42.1 Obstructive sleep apnea G47.33 Hyperkalemia E87.5 Acute blood loss anemia D62 Portal hypertensive gastropathy K76.6; K31.89 Esophageal varices I85.00 UGI bleed K92.2
[2025-07-18 10:34] VITALS: PULSE 69
== END 2025-07-18 12:19 | disposition home or self-care (01) | DRG 369 ==
LOC: ED 06:44 → 1E 09:42 → 2E 07-16 18:53
DX: I10 Essential (primary) hypertension; E78.5 Hyperlipidemia, unspecified; M10.9 Gout, unspecified; I25.10 Atherosclerotic heart disease of native coronary artery without angina pectoris; I42.1 Obstructive hypertrophic cardiomyopathy; G47.33 Obstructive sleep apnea (adult) (pediatric); E87.5 Hyperkalemia; K75.81 Nonalcoholic steatohepatitis (NASH); Z86.73 Personal history of transient ischemic attack (TIA), and cerebral infarction without residual deficits; I85.11 Secondary esophageal varices with bleeding; E11.9 Type 2 diabetes mellitus without complications; Z68.31 Body mass index [BMI] 31.0-31.9, adult; E87.20 Acidosis, unspecified; Z79.899 Other long term (current) drug therapy; Z77.22 Contact with and (suspected) exposure to environmental tobacco smoke (acute) (chronic); Z79.82 Long term (current) use of aspirin; I24.89 Other forms of acute ischemic heart disease; D62 Acute posthemorrhagic anemia; K74.60 Unspecified cirrhosis of liver; K31.89 Other diseases of stomach and duodenum; E03.9 Hypothyroidism, unspecified; E66.9 Obesity, unspecified; Z79.84 Long term (current) use of oral hypoglycemic drugs